=== PATIENT | male | born 1950 | race Caucasian/White ===

== ENCOUNTER 2024-09-05 09:56 | Inpatient (IN) | payer MEDICARE ==
[~2024-09-05] VITALS: Ht 172.7 cm; Wt 94.9 kg
[2024-09-05] VITALS (10 sets, daily range): BP systolic 116–156; BP diastolic 38–106; TEMP 97–97.9; O2SAT 93–98
[2024-09-05] MEDS ORDERED: DOXY100C3 PO (10:34)
[2024-09-05] MEDS ORDERED: LISI30TA4 PO (10:34)
[2024-09-05] MEDS ORDERED: PRED10TA2 PO (10:34)
[2024-09-05] MEDS ORDERED: OXYC30TA PO (10:34)
[2024-09-05] MEDS ORDERED: ATOR1TAB19 PO (10:34)
[2024-09-05 12:39] LABS: ALBUMIN 3.2 G/DL (3.2-5.2); ALKALINE PHOSPHATASE 58 U/L (40-129); ALT/SGPT 21 U/L (7.0-40); AST/SGOT 35 U/L (<34); BILIRUBIN,DIRECT < 0.1 MG/DL (<0.4); BILIRUBIN,TOTAL 0.3 MG/DL (0.3-1.2); BLOOD UREA NITROGEN 61 MG/DL (9-23); CALCIUM LEVEL 9.2 MG/DL (8.3-10.6); CARBON DIOXIDE LEVEL 22 MMOL/L (20-31); CHLORIDE LEVEL 105 MMOL/L (98-107); CREATININE FOR GFR 1.77 MG/DL (0.70-1.30); GLOMERULAR FILTRATION RATE 40.3 (>42); GLUCOSE, FASTING 121 MG/DL (74-106); POTASSIUM SERUM 5.7 MMOL/L (3.5-5.1); SODIUM LEVEL 139 MMOL/L (136-145); TOTAL PROTEIN 7.4 G/DL (5.7-8.2)
[2024-09-05 12:41] LABS: THYROID STIMULATING HORMONE 0.591 uIU/ML (0.55-4.78)
[2024-09-05 13:16] LABS: OSMOLALITY SERUM 313 MOSM/KG (280-301)
[2024-09-05 13:29] LABS: BASO % 0.4 % (0.0-1.0); EOS % 0.4 % (0.0-3.0); LYMPH # 0.9 10^3/uL (1.5-5.0); LYMPH % 33.1 % (24.0-44.0); MEAN CORPUSCULAR HEMOGLOBIN 38.1 pg (27.0-33.0); MEAN CORPUSCULAR HGB CONC 33.3 g/dl (32.0-36.5); MONO # 0.5 10^3/uL (0.0-0.8); MONO % 17.6 % (2.0-8.0); NEUTROPHILS # 1.2 10^3/uL (1.5-8.5); NEUTROPHILS % 42.2 % (36.0-66.0); RED BLOOD COUNT 1.47 10^6/uL (4.30-6.10); WHITE BLOOD COUNT 2.7 10^3/uL (4.0-10.0)
[2024-09-05 13:34] LABS: HEMATOCRIT 16.8 % (42.0-52.0); MEAN CORPUSCULAR VOLUME 114.3 fl (80.0-96.0); PLATELET COUNT, AUTOMATED 81 10^3/uL (150-450)
[2024-09-05 13:35] LABS: HEMOGLOBIN 5.6 g/dl (13.5-17.5)
[2024-09-05 13:40] LABS: INR 1.08; PROTHROMBIN TIME 14.3 SECONDS (12.5-14.5)
[2024-09-05] MEDS ORDERED: ALBU2.5V10 INH (13:42)
[2024-09-05] MEDS ORDERED: VENTAER INH (13:42)
[2024-09-05] MEDS ORDERED: ATEN50TA2 PO (13:42)
[2024-09-05] MEDS ORDERED: HOME MED LIST COMPLETE! XX SCH (13:45)
[2024-09-05 14:08] LABS: POTASSIUM SERUM 5.6 MMOL/L (3.5-5.1)
[2024-09-05 14:17] LABS: PERCENT SATURATION 92.6 % (19.7-50.0)
[2024-09-05 14:19] LABS: FERRITIN 1022.7 NG/ML (10.5-307.3)
[2024-09-05 14:20] LABS: FOLATE 19.8 NG/ML (>5.4)
[2024-09-05] MEDS ORDERED: ALBUTEROL SULFATE 2.5MG/0.5ML INH NEB SOLN INH PRN (16:00)
[2024-09-05] MEDS: PATIROMER SORBITEX CALCIUM 8.4 GM POWDER PACKET (VELTASSA) PO ONE (16:08)
[2024-09-05 17:16] LABS: URIC ACID 11.4 MG/DL (3.7-9.2)
[2024-09-05 17:19] LABS: PHOSPHORUS LEVEL 3.7 MG/DL (2.4-5.1)
[2024-09-05] MEDS: NS (Normal Saline) 0.9% 1,000 ML IV SCH (17:26)
[2024-09-05] MEDS: ATORVASTATIN 10 MG TAB PO SCH (20:16)
[2024-09-05] MEDS: oxyCODONE 5MG TAB PO SCH (20:17)
[2024-09-05 20:25] LABS: HEMATOCRIT 19.9 % (42.0-52.0); MEAN CORPUSCULAR HEMOGLOBIN 34.7 pg (27.0-33.0); MEAN CORPUSCULAR HGB CONC 33.7 g/dl (32.0-36.5); MEAN CORPUSCULAR VOLUME 103.1 fl (80.0-96.0); PLATELET COUNT, AUTOMATED 73 10^3/uL (150-450); RED BLOOD COUNT 1.93 10^6/uL (4.30-6.10); WHITE BLOOD COUNT 3.3 10^3/uL (4.0-10.0)
[2024-09-05 20:26] LABS: HEMOGLOBIN 6.7 g/dl (13.5-17.5)
[2024-09-05 20:55] LABS: ATYPICAL LYMPH 2 % (0-5); LYMPHOCYTES 44 % (16-44); MONOCYTES 15 % (0-5); NEUTROPHILS 39 % (28-66)
[2024-09-05 20:56] LABS: ANISOCYTOSIS 2+; PLATELET ESTIMATE DECREASED (NORMAL)
[2024-09-05 21:02] LABS: CALCIUM LEVEL 9.3 MG/DL (8.3-10.6); CREATININE FOR GFR 1.59 MG/DL (0.70-1.30); GLOMERULAR FILTRATION RATE 45.7 (>42); POTASSIUM SERUM 4.9 MMOL/L (3.5-5.1)
[2024-09-05 23:03] LABS: MEAN CORPUSCULAR HEMOGLOBIN 34.9 pg (27.0-33.0); MEAN CORPUSCULAR HGB CONC 34.6 g/dl (32.0-36.5); MEAN CORPUSCULAR VOLUME 100.9 fl (80.0-96.0); RED BLOOD COUNT 2.29 10^6/uL (4.30-6.10)
[2024-09-05 23:08] LABS: HEMATOCRIT 23.1 % (42.0-52.0)
[2024-09-05 23:09] LABS: PLATELET COUNT, AUTOMATED 68 10^3/uL (150-450)
[2024-09-05 23:25] LABS: MAGNESIUM LEVEL 2.1 MG/DL (1.8-2.4)
[2024-09-05 23:26] LABS: CK-MB VALUE MASS 2.1 NG/ML (<3.6)
[2024-09-05 23:27] LABS: MB/CK RELATIVE INDEX 1.3 (< OR =4)
[2024-09-06 04:00] VITALS: BP 132/58; TEMP 97.5; O2SAT 94
[2024-09-06 06:58] LABS: HEMATOCRIT 22.8 % (42.0-52.0); HEMOGLOBIN 7.8 g/dl (13.5-17.5); MEAN CORPUSCULAR HEMOGLOBIN 34.2 pg (27.0-33.0); MEAN CORPUSCULAR HGB CONC 34.2 g/dl (32.0-36.5); RED BLOOD COUNT 2.28 10^6/uL (4.30-6.10); WHITE BLOOD COUNT 2.5 10^3/uL (4.0-10.0)
[2024-09-06 07:02] LABS: PLATELET COUNT, AUTOMATED 68 10^3/uL (150-450)
[2024-09-06 07:32] LABS: CALCIUM LEVEL 8.7 MG/DL (8.3-10.6); CREATININE FOR GFR 1.37 MG/DL (0.70-1.30); GLOMERULAR FILTRATION RATE 54.2 (>42); POTASSIUM SERUM 4.8 MMOL/L (3.5-5.1)
[2024-09-06 08:00] VITALS: BP 130/68; TEMP 97.2; O2SAT 96
[2024-09-06 08:40] LABS: URIC ACID 9.8 MG/DL (3.7-9.2)
[2024-09-06 12:00] VITALS: BP 146/57; TEMP 97.5; O2SAT 94
[2024-09-06 20:26] VITALS: BP 161/56; TEMP 97.5; O2SAT 96
[2024-09-06 20:32] LABS: HEMATOCRIT 23.8 % (42.0-52.0); HEMOGLOBIN 8.1 g/dl (13.5-17.5); RED BLOOD COUNT 2.38 10^6/uL (4.30-6.10)
[2024-09-06 20:39] LABS: PLATELET COUNT, AUTOMATED 71 10^3/uL (150-450); WHITE BLOOD COUNT 2.3 10^3/uL (4.0-10.0)
[2024-09-06] MEDS: **hydrALAZINE HCL** 25 MG TAB PO PRN (20:50)
[2024-09-06 21:01] LABS: ATYPICAL LYMPH 13 % (0-5); EOSINOPHILS 1 % (0-3); LYMPHOCYTES 41 % (16-44); MONOCYTES 11 % (0-5); NEUTROPHILS 34 % (28-66)
[2024-09-06 21:05] LABS: PLATELET ESTIMATE DECREASED (NORMAL); SCHISTOCYTES 1+
[2024-09-06 21:08] LABS: ANISOCYTOSIS 1+
[2024-09-07 04:00] VITALS: BP 164/63; TEMP 97.5; O2SAT 96
[2024-09-07 06:35] LABS: EOS % 1.3 % (0.0-3.0); HEMATOCRIT 23.3 % (42.0-52.0); HEMOGLOBIN 8.1 g/dl (13.5-17.5); LYMPH # 1.1 10^3/uL (1.5-5.0); LYMPH % 50.7 % (24.0-44.0); MEAN CORPUSCULAR HEMOGLOBIN 34.3 pg (27.0-33.0); MEAN CORPUSCULAR HGB CONC 34.8 g/dl (32.0-36.5); MEAN CORPUSCULAR VOLUME 98.7 fl (80.0-96.0); MONO # 0.5 10^3/uL (0.0-0.8); MONO % 20.2 % (2.0-8.0); NEUTROPHILS % 22.9 % (36.0-66.0); RED BLOOD COUNT 2.36 10^6/uL (4.30-6.10); WHITE BLOOD COUNT 2.2 10^3/uL (4.0-10.0)
[2024-09-07 06:43] LABS: NEUTROPHILS # 0.5 10^3/uL (1.5-8.5); PLATELET COUNT, AUTOMATED 69 10^3/uL (150-450)
[2024-09-07 06:59] LABS: BLOOD UREA NITROGEN 30 MG/DL (9-23); CARBON DIOXIDE LEVEL 25 MMOL/L (20-31); CHLORIDE LEVEL 108 MMOL/L (98-107); CREATININE FOR GFR 1.03 MG/DL (0.70-1.30); GLOMERULAR FILTRATION RATE > 60.0 (>42); GLUCOSE, FASTING 100 MG/DL (74-106); POTASSIUM SERUM 4.4 MMOL/L (3.5-5.1); SODIUM LEVEL 143 MMOL/L (136-145)
[2024-09-07] MEDS ORDERED: LIDOCAINE 1% MDV 20ML VIAL As Ordered ONE (12:15)
[2024-09-07] MEDS: **hydrALAZINE** 50 MG TAB PO SCH (13:53)
[2024-09-07 14:00] VITALS: BP 175/78; TEMP 97.3; O2SAT 96
[2024-09-07 15:03] LABS: C REACTIVE PROTEIN QUANTITATIV 8.24 MG/DL (<1.0)
[2024-09-07 15:09] VITALS: BP 168/68
[2024-09-07] MEDS ORDERED: NORV5TAB PO (15:17)
[2024-09-07] MEDS ORDERED: HYDR25TA88 PO (15:17)
[2024-09-07 15:18] LABS: ERYTHROCYTE SEDIMENTATION RATE 54 mm/hr (0-20)
[2024-09-07 15:24] VITALS: BP 168/68
[2024-09-07] MEDS: amLODIPine 5 MG TAB PO ONE (15:24)
[2024-09-07 15:33] LABS: HEPATITIS B SURFACE ANTIGEN NEGATIVE (NEGATIVE)
[2024-09-07 15:45] LABS: HIV 1&2 SCREEN NEGATIVE (NEGATIVE)
[2024-09-07 15:54] LABS: HEPATITIS C VIRUS ABY INDEX 0.06 INDEX (<0.8)
[2024-09-09 17:49] LABS: BABESIA MICROTI PCR Not Detected (Not Detected)
[2024-09-10 15:02] LABS: LYME TOTAL ANTIBODY CIA <= 0.90 Index (<=0.90)
[2024-09-11 17:28] LABS: EHRLICHIA CAFFEENSIS IGM <1:20 (<1:20)
[2024-09-11 19:44] LABS: A PHAGOCYTOPHILUM AB IGG <1 (<1:64); ROCKY MTN SPOTTED FEVER IGM Not Detected (Not Detected)
[2024-09-13 16:23] LABS: ANTI PARVO VIRUS LEVEL IGG 3.2 (<0.9); ANTI PARVO VIRUS LEVEL IgM 0.8 (<0.9)
== END 2024-09-07 16:55 | disposition home or self-care (01) | DRG 809 ==
LOC: M ED 09:56 → M ED INP 15:45 → M MSPAV 17:22
PROVIDERS: ADMIT Internal Medicine; ATTEND Internal Medicine
PROC: 30233N1 Transfusion of Nonautologous Red Blood Cells into Peripheral Vein, Percutaneous Approach (ICD-10-PCS; 2024-09-05)
PROC: 07DR3ZX Extraction of Iliac Bone Marrow, Percutaneous Approach, Diagnostic (ICD-10-PCS; principal; 2024-09-07 12:00)
DX: D61.818 Other pancytopenia (principal); N17.9 Acute kidney failure, unspecified; E87.20 Acidosis, unspecified; I10 Essential (primary) hypertension; E78.5 Hyperlipidemia, unspecified; R71.8 Other abnormality of red blood cells; I73.9 Peripheral vascular disease, unspecified; G89.29 Other chronic pain; M54.9 Dorsalgia, unspecified; R53.1 Weakness; N28.1 Cyst of kidney, acquired; E87.5 Hyperkalemia; Z79.891 Long term (current) use of opiate analgesic; Z79.899 Other long term (current) drug therapy; Z88.5 Allergy status to narcotic agent; Z87.891 Personal history of nicotine dependence; Z98.62 Peripheral vascular angioplasty status

== ENCOUNTER → 2024-10-26 | Outpatient (CLI) | payer MEDICARE, OTHER ==
[~2024-10-26] VITALS: Ht 172.7 cm; Wt 99.0 kg
[~2024-10-26] MED LIST: ACYC200C8; ALBU2.5V10 INH; ATEN50TA2 PO; ATOR1TAB19 PO; CIPR500T39; DOXY100C3 PO; HYDR25TA88 PO; LIDOCAINE 1% MDV 20ML VIAL As Ordered ONE; LISI30TA4 PO; MIDAZOLAM INJ 2MG/2ML VIAL As Ordered ONE; NORV5TAB PO; NS (Normal Saline) 0.9% 1,000 ML IV SCH; OXYC30TA PO; PRED10TA2 PO; UNRESOLVED CLARIFICATION ENTRY XX SCH; VENC100T PO; VENTAER INH; ZYLO100T2 PO; ceFAZolin 2 GM/D5W 50 ML IV BAG As Ordered ONE; fentaNYL 100 MCG/2 ML INJECTION As Ordered ONE
[2024-10-26 11:55] VITALS: TEMP 98.2
[2024-10-26] MEDS: ceFAZolin SOD 2 GM in IV 1 EA IV ONE (14:41)
[2024-10-26 15:55] VITALS: BP 149/67; O2SAT 94
== END ==
LOC: M IRPRO 11:52
PROVIDERS: ATTEND Specialist
DX: C92.00 Acute myeloblastic leukemia, not having achieved remission (principal)
CPT/HCPCS: 36561; 99152; 99153; C1894; J0690; J1642; J2250; J3010

== ENCOUNTER 2024-11-06 04:03 | Inpatient (IN) | payer MEDICARE, OTHER ==
[~2024-11-06] VITALS: Ht 172.7 cm; Wt 90.7 kg
[2024-11-06] VITALS (8 sets, daily range): BP systolic 132–180; BP diastolic 44–80; TEMP 97.5–101.4; O2SAT 90–100
[~2024-11-06 04:03] MED LIST changes: -ACYC200C8; +ACYC200C8 PO; +ATIV1TAB7 PO; -CIPR500T39; +CIPR500T39 PO; +LIDO30CR18 TOP; -LIDOCAINE 1% MDV 20ML VIAL As Ordered ONE; +LORA1TAB23 PO; -MIDAZOLAM INJ 2MG/2ML VIAL As Ordered ONE; -NS (Normal Saline) 0.9% 1,000 ML IV SCH; -UNRESOLVED CLARIFICATION ENTRY XX SCH; -ceFAZolin 2 GM/D5W 50 ML IV BAG As Ordered ONE; -fentaNYL 100 MCG/2 ML INJECTION As Ordered ONE
[2024-11-06 05:00] LABS: EOS % 1.4 % (0.0-3.0); HEMATOCRIT 21.1 % (42.0-52.0); LYMPH # 0.8 10^3/uL (1.5-5.0); LYMPH % 53.9 % (24.0-44.0); MEAN CORPUSCULAR HEMOGLOBIN 27.3 pg (27.0-33.0); MEAN CORPUSCULAR HGB CONC 33.2 g/dl (32.0-36.5); MEAN CORPUSCULAR VOLUME 82.4 fl (80.0-96.0); MONO # 0.5 10^3/uL (0.0-0.8); NEUTROPHILS % 6.4 % (36.0-66.0); RED BLOOD COUNT 2.56 10^6/uL (4.30-6.10); WHITE BLOOD COUNT 1.4 10^3/uL (4.0-10.0)
[2024-11-06 05:13] LABS: AMYLASE 88 U/L (30-118)
[2024-11-06 05:14] LABS: C REACTIVE PROTEIN QUANTITATIV 12.77 MG/DL (<1.0)
[2024-11-06 05:16] LABS: NEUTROPHILS # 0.1 10^3/uL (1.5-8.5); PLATELET COUNT, AUTOMATED 12 10^3/uL (150-450)
[2024-11-06 05:25] LABS: PROCALCITONIN 0.28 ng/ml
[2024-11-06 05:32] LABS: ALBUMIN 2.8 G/DL (3.2-5.2); ALKALINE PHOSPHATASE 49 U/L (40-129); ALT/SGPT 18 U/L (7.0-40); AST/SGOT 20 U/L (<34); BILIRUBIN,DIRECT < 0.1 MG/DL (<0.4); BILIRUBIN,TOTAL 0.4 MG/DL (0.3-1.2); BLOOD UREA NITROGEN 33 MG/DL (9-23); CALCIUM LEVEL 8.5 MG/DL (8.3-10.6); CARBON DIOXIDE LEVEL 26 MMOL/L (20-31); CHLORIDE LEVEL 101 MMOL/L (98-107); CREATININE FOR GFR 1.27 MG/DL (0.70-1.30); GLUCOSE, FASTING 112 MG/DL (74-106); POTASSIUM SERUM 4.3 MMOL/L (3.5-5.1); SODIUM LEVEL 136 MMOL/L (136-145); TOTAL PROTEIN 6.7 G/DL (5.7-8.2)
[2024-11-06] MEDS: CEFEPIME HCL 2 GM in DEXTROSE 5% (D5W) ADV/MINI-BAG 50 ML IV ONE (10:15)
[2024-11-06] MEDS: ACETAMINOPHEN 325 MG TAB PO PRN (10:15)
[2024-11-06 10:59] LABS: APPEARANCE, URINE CLEAR (CLEAR); BACTERIA, URINE AUTO NEGATIVE (NEGATIVE); BILIRUBIN, URINE AUTO NEGATIVE (NEGATIVE); BLOOD, URINE BLOOD NEGATIVE (NEGATIVE); COLOR, URINE YELLOW (YELLOW); GLUCOSE, URINE (UA) AUTO NEGATIVE (NEGATIVE); KETONE, URINE AUTO NEGATIVE (NEGATIVE); LEUKOCYTE ESTERASE, URINE AUTO NEGATIVE (NEGATIVE); NITRITE, URINE AUTO NEGATIVE (NEGATIVE); PROTEIN, URINE AUTO 2+ mg/dL (NEGATIVE); RBC, URINE AUTO 0 /HPF (0-3); SPECIFIC GRAVITY URINE AUTO 1.016 (1.002-1.035); SQUAMOUS EPITHELIAL CELL UR AU 0 /HPF (0-6); UROBILINOGEN, URINE AUTO 0.2 mg/dL (0.0-2.0); WBC, URINE AUTO 0 /HPF (0-3)
[2024-11-06 11:46] LABS: URIC ACID 5.9 MG/DL (3.7-9.2)
[2024-11-06] MEDS ORDERED: ALBUTEROL 90 MCG/ACT 8GM HFA INHALER INH PRN (14:05)
[2024-11-06] MEDS ORDERED: AMLO1TAB24 PO (14:23)
[2024-11-06] MEDS ORDERED: HYDR25TA87 PO (14:25)
[2024-11-06] MEDS ORDERED: HOME MED LIST COMPLETE! XX SCH (14:30)
[2024-11-06 14:58] LABS: LDH LACTATE DEHYDROGENASE 429 U/L (120-246)
[2024-11-06] MEDS: FUROSEMIDE 40MG/4ML VIAL IV ONE ×2 (18:00→19:03)
[2024-11-06] MEDS: amLODIPine 5 MG TAB PO SCH (19:03)
[2024-11-06] MEDS: allopurinoL 300 MG TAB PO SCH (19:03)
[2024-11-06] MEDS: ATORVASTATIN 10 MG TAB PO SCH (21:22)
[2024-11-06] MEDS: LORazepam 1 MG TAB PO SCH (21:23)
[2024-11-06] MEDS: oxyCODONE 5MG TAB PO SCH (21:23)
[2024-11-06] MEDS: ACYCLOVIR 200 MG CAPSULE PO SCH (22:29)
[2024-11-07] VITALS (9 sets, daily range): BP systolic 124–151; BP diastolic 50–76; TEMP 97.3–101.4; O2SAT 92–95
[2024-11-07] MEDS: FUROSEMIDE 40MG/4ML VIAL IV ONE (00:11)
[2024-11-07] MEDS: REMDESIVIR 200 MG in NS 250 ML IV ONE (00:45)
[2024-11-07] MEDS: CEFEPIME HCL 2 GM in DEXTROSE 5% (D5W) ADV/MINI-BAG 50 ML IV SCH ×2 (03:11→18:33)
[2024-11-07 06:12] LABS: HEMATOCRIT 22.9 % (42.0-52.0); HEMOGLOBIN 7.7 g/dl (13.5-17.5); LYMPH # 0.7 10^3/uL (1.5-5.0); MEAN CORPUSCULAR HEMOGLOBIN 27.4 pg (27.0-33.0); MEAN CORPUSCULAR HGB CONC 33.6 g/dl (32.0-36.5); MEAN CORPUSCULAR VOLUME 81.5 fl (80.0-96.0); MONO # 0.3 10^3/uL (0.0-0.8); MONO % 28.8 % (2.0-8.0); NEUTROPHILS % 3.6 % (36.0-66.0); RED BLOOD COUNT 2.81 10^6/uL (4.30-6.10)
[2024-11-07 06:30] LABS: C REACTIVE PROTEIN QUANTITATIV 23.47 MG/DL (<1.0)
[2024-11-07 06:31] LABS: ALBUMIN 2.6 G/DL (3.2-5.2); ALKALINE PHOSPHATASE 50 U/L (40-129); ALT/SGPT 21 U/L (7.0-40); AST/SGOT 22 U/L (<34); BILIRUBIN,DIRECT 0.1 MG/DL (<0.4); BILIRUBIN,TOTAL 0.4 MG/DL (0.3-1.2); BLOOD UREA NITROGEN 27 MG/DL (9-23); CALCIUM LEVEL 8.2 MG/DL (8.3-10.6); CARBON DIOXIDE LEVEL 27 MMOL/L (20-31); CHLORIDE LEVEL 101 MMOL/L (98-107); CREATININE FOR GFR 1.03 MG/DL (0.70-1.30); GLOMERULAR FILTRATION RATE > 60.0 (>42); GLUCOSE, FASTING 110 MG/DL (74-106); PLATELET COUNT, AUTOMATED 11 10^3/uL (150-450); POTASSIUM SERUM 3.6 MMOL/L (3.5-5.1); SODIUM LEVEL 138 MMOL/L (136-145); TOTAL PROTEIN 6.4 G/DL (5.7-8.2); WHITE BLOOD COUNT 1.1 10^3/uL (4.0-10.0)
[2024-11-07] MEDS: **hydrALAZINE HCL** 25 MG TAB PO SCH (10:53)
[2024-11-07] MEDS: FILGRASTIM 480 MCG/0.8 ML SYRINGE **SC ADMINISTRATION ONLY SC SCH (11:05)
[2024-11-07 15:20] LABS: PROCALCITONIN 0.27 ng/ml
[2024-11-07] MEDS: REMDESIVIR 100 MG in NS 100 ML IV SCH (16:56)
[2024-11-07] MEDS ORDERED: MOM 30ML SUSPENSION UDC PO PRN (18:35)
[2024-11-07] MEDS: MOM 30ML SUSPENSION UDC PO ONE (18:59)
[2024-11-07 19:45] LABS: HEMATOCRIT 22.1 % (42.0-52.0); HEMOGLOBIN 7.6 g/dl (13.5-17.5); LYMPH # 0.8 10^3/uL (1.5-5.0); LYMPH % 52.7 % (24.0-44.0); MEAN CORPUSCULAR HEMOGLOBIN 27.9 pg (27.0-33.0); MEAN CORPUSCULAR HGB CONC 34.4 g/dl (32.0-36.5); MEAN CORPUSCULAR VOLUME 81.3 fl (80.0-96.0); MONO # 0.5 10^3/uL (0.0-0.8); MONO % 34.9 % (2.0-8.0); NEUTROPHILS % 11.7 % (36.0-66.0); RED BLOOD COUNT 2.72 10^6/uL (4.30-6.10); WHITE BLOOD COUNT 1.5 10^3/uL (4.0-10.0)
[2024-11-07 20:01] LABS: NEUTROPHILS # 0.2 10^3/uL (1.5-8.5)
[2024-11-07 20:02] LABS: PLATELET COUNT, AUTOMATED 8 10^3/uL (150-450)
[2024-11-07] MEDS: DOCUSATE SODIUM 100MG CAPSULE PO SCH (21:27)
[2024-11-07] MEDS: SENNA 8.6 MG TAB (SENOKOT) PO SCH (21:28)
[2024-11-08] VITALS (16 sets, daily range): BP systolic 101–183; BP diastolic 59–79; TEMP 97.3–101.1; O2SAT 92–100
[2024-11-08 05:48] LABS: MEAN CORPUSCULAR HEMOGLOBIN 27.5 pg (27.0-33.0); MEAN CORPUSCULAR HGB CONC 33.8 g/dl (32.0-36.5); MEAN CORPUSCULAR VOLUME 81.4 fl (80.0-96.0); RED BLOOD COUNT 2.47 10^6/uL (4.30-6.10); WHITE BLOOD COUNT 1.1 10^3/uL (4.0-10.0)
[2024-11-08 06:05] LABS: ALBUMIN 2.5 G/DL (3.2-5.2); ALKALINE PHOSPHATASE 48 U/L (40-129); ALT/SGPT 27 U/L (7.0-40); AST/SGOT 24 U/L (<34); BILIRUBIN,TOTAL 0.3 MG/DL (0.3-1.2); BLOOD UREA NITROGEN 30 MG/DL (9-23); CALCIUM LEVEL 8.1 MG/DL (8.3-10.6); CARBON DIOXIDE LEVEL 28 MMOL/L (20-31); CHLORIDE LEVEL 101 MMOL/L (98-107); CREATININE FOR GFR 1.14 MG/DL (0.70-1.30); GLOMERULAR FILTRATION RATE > 60.0 (>42); GLUCOSE, FASTING 106 MG/DL (74-106); POTASSIUM SERUM 3.7 MMOL/L (3.5-5.1); SODIUM LEVEL 138 MMOL/L (136-145); TOTAL PROTEIN 6.1 G/DL (5.7-8.2)
[2024-11-08 06:07] LABS: HEMATOCRIT 20.1 % (42.0-52.0); HEMOGLOBIN 6.8 g/dl (13.5-17.5); PLATELET COUNT, AUTOMATED 34 10^3/uL (150-450)
[2024-11-08 07:03] LABS: ATYPICAL LYMPH 4 % (0-5); LYMPHOCYTES 67 % (16-44); MONOCYTES 21 % (0-5); NEUTROPHILS 8 % (28-66); PLATELET ESTIMATE MARKED DECREASE (NORMAL)
[2024-11-08 07:04] LABS: ANISOCYTOSIS 1+; POIKILOCYTOSIS 1+; POLYCHROMASIA 1+; ROULEAUX 1+
[2024-11-08 08:13] LABS: SOURCE PERIPHERAL SMEAR
[2024-11-08 08:37] LABS: D-DIMER QUANT 3.36 ug/mL (<0.5)
[2024-11-08] MEDS: LACTOBACILLUS ACIDOPHILUS CAP (BACID) PO SCH (17:26)
[2024-11-08] MEDS: KETOROLAC 30 MG/ML 1ML VIAL IV ONE (17:32)
[2024-11-08 18:00] LABS: MEAN CORPUSCULAR HEMOGLOBIN 27.9 pg (27.0-33.0); MEAN CORPUSCULAR HGB CONC 34.1 g/dl (32.0-36.5); MEAN CORPUSCULAR VOLUME 81.7 fl (80.0-96.0); RED BLOOD COUNT 2.51 10^6/uL (4.30-6.10)
[2024-11-08 18:01] LABS: HEMATOCRIT 20.5 % (42.0-52.0); PLATELET COUNT, AUTOMATED 22 10^3/uL (150-450)
[2024-11-08 18:41] LABS: ATYPICAL LYMPH 5 % (0-5); LYMPHOCYTES 59 % (16-44); METAMYELOCYTES 1 % (0-0); MONOCYTES 32 % (0-5); NEUTROPHILS 3 % (28-66); PLATELET ESTIMATE MARKED DECREASE (NORMAL)
[2024-11-08 18:43] LABS: ANISOCYTOSIS 1+; HYPOCHROMASIA 2+; MICROCYTOSIS 1+
[2024-11-08] MEDS ORDERED: CIPROFLOXACIN 500MG TABLET PO SCH (21:00)
[2024-11-09] VITALS (10 sets, daily range): BP systolic 132–166; BP diastolic 51–88; TEMP 97.7–98.5; O2SAT 92–98
[2024-11-09 01:25] LABS: POTASSIUM SERUM 3.8 MMOL/L (3.5-5.1)
[2024-11-09 06:24] LABS: HEMATOCRIT 21.4 % (42.0-52.0); HEMOGLOBIN 7.3 g/dl (13.5-17.5); LYMPH # 0.7 10^3/uL (1.5-5.0); LYMPH % 64.3 % (24.0-44.0); MEAN CORPUSCULAR HEMOGLOBIN 27.9 pg (27.0-33.0); MEAN CORPUSCULAR HGB CONC 34.1 g/dl (32.0-36.5); MEAN CORPUSCULAR VOLUME 81.7 fl (80.0-96.0); MONO # 0.3 10^3/uL (0.0-0.8); MONO % 30.4 % (2.0-8.0); NEUTROPHILS % 2.6 % (36.0-66.0); RED BLOOD COUNT 2.62 10^6/uL (4.30-6.10); WHITE BLOOD COUNT 1.1 10^3/uL (4.0-10.0)
[2024-11-09 06:28] LABS: PLATELET COUNT, AUTOMATED 12 10^3/uL (150-450)
[2024-11-09 06:41] LABS: ALBUMIN 2.4 G/DL (3.2-5.2); ALKALINE PHOSPHATASE 51 U/L (40-129); ALT/SGPT 27 U/L (7.0-40); AST/SGOT 24 U/L (<34); BILIRUBIN,TOTAL 0.3 MG/DL (0.3-1.2); BLOOD UREA NITROGEN 25 MG/DL (9-23); CALCIUM LEVEL 7.8 MG/DL (8.3-10.6); CARBON DIOXIDE LEVEL 26 MMOL/L (20-31); CHLORIDE LEVEL 101 MMOL/L (98-107); CREATININE FOR GFR 0.95 MG/DL (0.70-1.30); GLOMERULAR FILTRATION RATE > 60.0 (>42); GLUCOSE, FASTING 99 MG/DL (74-106); POTASSIUM SERUM 3.7 MMOL/L (3.5-5.1); SODIUM LEVEL 137 MMOL/L (136-145); TOTAL PROTEIN 5.8 G/DL (5.7-8.2)
[2024-11-09] MEDS ORDERED: oxyCODONE 5MG TAB PO PRN (14:00)
[2024-11-09] MEDS: oxyCODONE 5MG TAB PO PRN (14:51)
[2024-11-09 15:34] LABS: HEMATOCRIT 26.5 % (42.0-52.0); HEMOGLOBIN 9.1 g/dl (13.5-17.5); LYMPH # 0.7 10^3/uL (1.5-5.0); LYMPH % 68.6 % (24.0-44.0); MEAN CORPUSCULAR HEMOGLOBIN 28.1 pg (27.0-33.0); MEAN CORPUSCULAR HGB CONC 34.3 g/dl (32.0-36.5); MEAN CORPUSCULAR VOLUME 81.8 fl (80.0-96.0); MONO # 0.3 10^3/uL (0.0-0.8); MONO % 25.7 % (2.0-8.0); NEUTROPHILS % 0.9 % (36.0-66.0); RED BLOOD COUNT 3.24 10^6/uL (4.30-6.10); WHITE BLOOD COUNT 1.1 10^3/uL (4.0-10.0)
[2024-11-09 15:36] LABS: PLATELET COUNT, AUTOMATED 11 10^3/uL (150-450)
[2024-11-09] MEDS ORDERED: OXYC15TA66 PO ×2 (16:40→16:43)
[2024-11-09] MEDS ORDERED: ACET32TAB PO (16:40)
[2024-11-09] MEDS ORDERED: RISATAB3 PO (16:40)
[2024-11-09] MEDS ORDERED: SENO8.6T5 PO (16:40)
[2024-11-09] MEDS ORDERED: COLA100C5 PO (16:40)
[2024-11-09] MEDS ORDERED: OXYC-517 PO ×2 (16:40→16:41)
[2024-11-09] MEDS ORDERED: RAMELTEON 8 MG TAB (ROZEREM) PO SCH (21:00)
[2024-11-09] MEDS ORDERED: oxyCODONE 15MG CR TAB PO SCH (21:00)
== END 2024-11-09 18:06 | disposition home or self-care (01) | DRG 871 ==
LOC: EDBD 04:03 → M ED 04:03 → M ED INP 08:12 → M MSPAV 20:16
PROVIDERS: ADMIT Internal Medicine Nephrology; ATTEND Internal Medicine
PROC: XW033E5 Introduction of Remdesivir Anti-infective into Peripheral Vein, Percutaneous Approach, New Technology Group 5 (ICD-10-PCS; principal; 2024-11-06)
PROC: 30233R1 Transfusion of Nonautologous Platelets into Peripheral Vein, Percutaneous Approach (ICD-10-PCS; 2024-11-06)
PROC: 30233N1 Transfusion of Nonautologous Red Blood Cells into Peripheral Vein, Percutaneous Approach (ICD-10-PCS; 2024-11-06)
DX: A41.9 Sepsis, unspecified organism (principal); U07.1 COVID-19; D61.810 Antineoplastic chemotherapy induced pancytopenia; C92.00 Acute myeloblastic leukemia, not having achieved remission; I10 Essential (primary) hypertension; E78.5 Hyperlipidemia, unspecified; I73.9 Peripheral vascular disease, unspecified; G89.29 Other chronic pain; F41.9 Anxiety disorder, unspecified; M54.50 Low back pain, unspecified; D70.3 Neutropenia due to infection; T45.1X5A Adverse effect of antineoplastic and immunosuppressive drugs, initial encounter; Z79.69 Long term (current) use of other immunomodulators and immunosuppressants; Z79.899 Other long term (current) drug therapy; Z79.891 Long term (current) use of opiate analgesic; Z87.891 Personal history of nicotine dependence

== ENCOUNTER → 2024-11-14 | Outpatient (CLI) | payer MEDICARE, OTHER ==
[~2024-11-14] VITALS: Ht 167.6 cm; Wt 93.8 kg
[~2024-11-14] MED LIST changes: +ACET32TAB PO; +AMLO1TAB24 PO; +COLA100C5 PO; +HYDR25TA87 PO; +MAGICMW SSP; +OXYC-517 PO; +OXYC15TA66 PO; +OXYC30TA72 PO; +POSACONAZOLE PO; +RISATAB3 PO; +SENO8.6T5 PO
[2024-11-14 15:19] VITALS: BP 183/62; O2SAT 96
== END ==
LOC: M PAL 15:00
PROVIDERS: ATTEND Family Medicine
DX: Z51.5 Encounter for palliative care (principal); C92.00 Acute myeloblastic leukemia, not having achieved remission; Z79.891 Long term (current) use of opiate analgesic; Z79.69 Long term (current) use of other immunomodulators and immunosuppressants

== ENCOUNTER 2024-11-21 19:29 | Inpatient (IN) | payer MEDICARE, OTHER ==
[~2024-11-21] VITALS: Ht 172.7 cm; Wt 94.9 kg
[2024-11-21 20:25] LABS: VENOUS BASE EXCESS 2.9 (-2.0-2.0); VENOUS O2 SATURATION 95.5 % (60.0-80.0); VENOUS PARTIAL PRESSURE CO2 38.7 mmHg (38.0-50.0); VENOUS PARTIAL PRESSURE O2 79.2 mmHg (30.0-50.0); VENOUS PH 7.461 UNITS (7.330-7.430); VENOUS STANDARD HCO3 27.1 MMOL/L; VENOUS TOTAL CO2 28.2 MMOL/L (24.0-28.0)
[2024-11-21 20:44] LABS: THYROID STIMULATING HORMONE 0.892 uIU/ML (0.55-4.78)
[2024-11-21 20:50] LABS: LYMPH # 0.5 10^3/uL (1.5-5.0); MEAN CORPUSCULAR HEMOGLOBIN 28.8 pg (27.0-33.0); MEAN CORPUSCULAR HGB CONC 33.9 g/dl (32.0-36.5); MEAN CORPUSCULAR VOLUME 85.1 fl (80.0-96.0); MONO # 0.4 10^3/uL (0.0-0.8); MONO % 41.8 % (2.0-8.0); NEUTROPHILS % 7.2 % (36.0-66.0); RED BLOOD COUNT 2.22 10^6/uL (4.30-6.10)
[2024-11-21 20:58] LABS: HEMATOCRIT 18.9 % (42.0-52.0); HEMOGLOBIN 6.4 g/dl (13.5-17.5); NEUTROPHILS # 0.1 10^3/uL (1.5-8.5)
[2024-11-21 21:26] LABS: BILIRUBIN,DIRECT 0.2 MG/DL (<0.4); BILIRUBIN,TOTAL 0.7 MG/DL (0.3-1.2); CALCIUM LEVEL 8.1 MG/DL (8.3-10.6); CREATININE FOR GFR 1.42 MG/DL (0.70-1.30); GLOMERULAR FILTRATION RATE 51.9 (>42); POTASSIUM SERUM 5.4 MMOL/L (3.5-5.1); TOTAL PROTEIN 6.9 G/DL (5.7-8.2)
[2024-11-21] MEDS: NS (Normal Saline) 0.9% 1,000 ML IV SCH (21:40)
[2024-11-21 21:41] LABS: MB/CK RELATIVE INDEX 0.61 (< OR =4)
[2024-11-21] MEDS: ACETAMINOPHEN 325 MG TAB PO ONE (21:45)
[2024-11-21] MEDS: MORPHINE 2 MG/ML 1ML VIAL IV ONE (21:55)
[2024-11-21 22:15] LABS: INR 1.21; PARTIAL THROMBOPLASTIN TIME 38.2 SECONDS (24.8-34.2); PROTHROMBIN TIME 15.6 SECONDS (12.5-14.5)
[2024-11-21 22:17] LABS: KETONE, URINE AUTO RFX NEGATIVE (NEGATIVE); LEUKOCYTE ESTERASE UR AUTO RFX NEGATIVE (NEGATIVE); MUCUS, URINE RFX SMALL (NEGATIVE); NITRITE, URINE AUTO RFX NEGATIVE (NEGATIVE); RBC, URINE AUTO RFX 6 /HPF (0-3); SQUAM EPITHELIAL CELL UR AURFX 0 /HPF (0-6); WBC, URINE AUTO RFX 2 /HPF (0-3)
[2024-11-21] MEDS ORDERED: ISOVUE-370 76% 100ML VIAL As Ordered ONE (22:24)
[2024-11-21] MEDS: HumuLIN R (REGULAR) INSULIN (NovoLIN R) **100U/ML** PER UNIT IV ONE (22:29)
[2024-11-21] MEDS: DEXTROSE 50% 50ML SYRINGE IV STA (22:30)
[2024-11-21] MEDS: PIPERACILLIN/TAZOBACTAM SOD 4.5 GM in DEXTROSE 5% (D5W) ADV/MINI-BAG 50 ML IV ONE (22:33)
[2024-11-21 22:42] LABS: PLATELET COUNT, AUTOMATED 12 10^3/uL (150-450)
[2024-11-21] MEDS: CALCIUM GLUCONATE 1,000 MG in DEXTROSE 5% (D5W) MINI-BAG PLU 100 ML IV ONE (23:03)
[2024-11-21] MEDS ORDERED: RISATAB3 PO (23:13)
[2024-11-21] MEDS ORDERED: [UNRECOGNIZED DRUG - CODE] PO (23:13)
[2024-11-21] MEDS ORDERED: OXYC30TA72 PO (23:13)
[2024-11-21] MEDS ORDERED: LORA1TAB23 PO (23:13)
[2024-11-21] MEDS ORDERED: ALLO10TA PO (23:13)
[2024-11-21] MEDS ORDERED: LIDO30CR18 TOP (23:13)
[2024-11-21] MEDS ORDERED: MAGICMW SSP (23:13)
[2024-11-21] MEDS ORDERED: HOME MED LIST COMPLETE! XX SCH (23:15)
[2024-11-22] VITALS (14 sets, daily range): BP systolic 100–147; BP diastolic 50–69; TEMP 95.8–98.5; O2SAT 94–99
[2024-11-22] MEDS ORDERED: MAALOX 30 ML SUSP *UDC PO PRN
[2024-11-22] MEDS: NS (Normal Saline) 0.9% 1,000 ML IV SCH (00:29)
[2024-11-22 01:13] LABS: URIC ACID 4.7 MG/DL (3.7-9.2)
[2024-11-22] MEDS: PATIROMER SORBITEX CALCIUM 8.4 GM POWDER PACKET (VELTASSA) PO ONE (01:31)
[2024-11-22 01:36] LABS: SOURCE PERIPHERAL SMEAR
[2024-11-22] MEDS: LORazepam 1 MG TAB PO SCH (02:09)
[2024-11-22] MEDS: ATORVASTATIN 10 MG TAB PO SCH (02:09)
[2024-11-22] MEDS: PERCOCET 5MG/325MG TAB PO PRN (02:29)
[2024-11-22 03:10] LABS: PHOSPHORUS LEVEL 3.4 MG/DL (2.4-5.1)
[2024-11-22] MEDS ORDERED: cefTRIAXone SOD 2 GM in DEXTROSE 5% (D5W) ADV/MINI-BAG 50 ML IV SCH (06:00)
[2024-11-22] MEDS: PIPERACILLIN/TAZOBACTAM SOD 4.5 GM in DEXTROSE 5% (D5W) ADV/MINI-BAG 50 ML IV SCH ×2 (06:16→14:26)
[2024-11-22] MEDS ORDERED: VANCOMYCIN HCL 2,000 MG, VIAL MATE ADAPTER 1 EACH in NS 500 ML IV ONE (08:00)
[2024-11-22] MEDS ORDERED: VANCOMYCIN HCL 1,000 MG, VIAL MATE ADAPTER 1 EACH in NS 250 ML IV SCH (08:00)
[2024-11-22] MEDS ORDERED: ENOXAPARIN 40MG/0.4ML SYRINGE (J1650 PER 10MG) SC SCH (09:00)
[2024-11-22] MEDS: amLODIPine 5 MG TAB PO SCH (09:37)
[2024-11-22] MEDS: **hydrALAZINE HCL** 25 MG TAB PO SCH (09:37)
[2024-11-22] MEDS: VANCOMYCIN HCL 1,000 MG, VIAL MATE ADAPTER 1 EACH in NS 250 ML IV ONE (09:38)
[2024-11-22] MEDS: PANTOPRAZOLE 40MG VIAL IV SCH (09:38)
[2024-11-22] MEDS: DOCUSATE SODIUM 100MG CAPSULE PO SCH (09:38)
[2024-11-22] MEDS: allopurinoL 300 MG TAB PO SCH (09:38)
[2024-11-22 10:38] LABS: HEMATOCRIT 22.1 % (42.0-52.0); HEMOGLOBIN 7.4 g/dl (13.5-17.5); LYMPH # 0.6 10^3/uL (1.5-5.0); MEAN CORPUSCULAR HEMOGLOBIN 28.4 pg (27.0-33.0); MEAN CORPUSCULAR HGB CONC 33.5 g/dl (32.0-36.5); MEAN CORPUSCULAR VOLUME 84.7 fl (80.0-96.0); MONO # 0.3 10^3/uL (0.0-0.8); RED BLOOD COUNT 2.61 10^6/uL (4.30-6.10)
[2024-11-22 10:40] LABS: NEUTROPHILS # 0.1 10^3/uL (1.5-8.5); PLATELET COUNT, AUTOMATED 19 10^3/uL (150-450)
[2024-11-22] MEDS: oxyCODONE 15MG CR TAB PO SCH (10:57)
[2024-11-22 10:58] LABS: D-DIMER QUANT 6.06 ug/mL (<0.5); INR 1.19; PARTIAL THROMBOPLASTIN TIME 36.6 SECONDS (24.8-34.2); PROTHROMBIN TIME 15.4 SECONDS (12.5-14.5)
[2024-11-22] MEDS ORDERED: VANCOMYCIN HCL 0 MG in IV FLUID PLACE HOLDER 1 EA IV SCH (11:05)
[2024-11-22 11:08] LABS: BLOOD UREA NITROGEN 23 MG/DL (9-23); CALCIUM LEVEL 7.7 MG/DL (8.3-10.6); CARBON DIOXIDE LEVEL 27 MMOL/L (20-31); CHLORIDE LEVEL 104 MMOL/L (98-107); CREATININE FOR GFR 1.04 MG/DL (0.70-1.30); GLOMERULAR FILTRATION RATE > 60.0 (>42); GLUCOSE, FASTING 106 MG/DL (74-106); SODIUM LEVEL 139 MMOL/L (136-145)
[2024-11-22] MEDS: ACYCLOVIR 200 MG CAPSULE PO SCH (12:45)
[2024-11-22] MEDS: VANCOMYCIN HCL 1,000 MG, VIAL MATE ADAPTER 1 EACH in NS 250 ML IV SCH (15:45)
[2024-11-22] MEDS ORDERED: MAGIC MOUTHWASH 5ML ORAL SYRINGE SS PRN (16:00)
[2024-11-22] MEDS ORDERED: PROHANCE 279.3MG/ML 5ML VIAL As Ordered ONE (19:17)
[2024-11-22] MEDS ORDERED: PROHANCE 279.3MG/ML 15ML VIAL As Ordered ONE (19:17)
[2024-11-22 22:34] LABS: HEMATOCRIT 22.8 % (42.0-52.0); HEMOGLOBIN 7.6 g/dl (13.5-17.5); MEAN CORPUSCULAR HGB CONC 33.3 g/dl (32.0-36.5); MEAN CORPUSCULAR VOLUME 84.1 fl (80.0-96.0); PLATELET COUNT, AUTOMATED 21 10^3/uL (150-450); RED BLOOD COUNT 2.71 10^6/uL (4.30-6.10); WHITE BLOOD COUNT 0.6 10^3/uL (4.0-10.0)
[2024-11-23] VITALS (16 sets, daily range): BP systolic 123–168; BP diastolic 58–99; TEMP 97.3–98.4; O2SAT 2–96
[2024-11-23] MEDS: MORPHINE 2 MG/ML 1ML VIAL IV PRN (01:31)
[2024-11-23 07:15] LABS: EOS % 1.4 % (0.0-3.0); HEMOGLOBIN 7.4 g/dl (13.5-17.5); LYMPH # 0.6 10^3/uL (1.5-5.0); LYMPH % 79.7 % (24.0-44.0); MEAN CORPUSCULAR HEMOGLOBIN 28.6 pg (27.0-33.0); MEAN CORPUSCULAR HGB CONC 33.6 g/dl (32.0-36.5); MEAN CORPUSCULAR VOLUME 84.9 fl (80.0-96.0); MONO # 0.1 10^3/uL (0.0-0.8); MONO % 15.9 % (2.0-8.0); NEUTROPHILS % 1.6 % (36.0-66.0); RED BLOOD COUNT 2.59 10^6/uL (4.30-6.10)
[2024-11-23 07:25] LABS: INR 1.04; PROTHROMBIN TIME 13.9 SECONDS (12.5-14.5)
[2024-11-23 07:37] LABS: ALBUMIN 1.9 G/DL (3.2-5.2); BLOOD UREA NITROGEN 14 MG/DL (9-23); CALCIUM LEVEL 7.7 MG/DL (8.3-10.6); CARBON DIOXIDE LEVEL 26 MMOL/L (20-31); CHLORIDE LEVEL 103 MMOL/L (98-107); CREATININE FOR GFR 0.89 MG/DL (0.70-1.30); GLOMERULAR FILTRATION RATE > 60.0 (>42); GLUCOSE, FASTING 101 MG/DL (74-106); POTASSIUM SERUM 3.7 MMOL/L (3.5-5.1); SODIUM LEVEL 138 MMOL/L (136-145)
[2024-11-23 07:54] LABS: PLATELET COUNT, AUTOMATED 24 10^3/uL (150-450); WHITE BLOOD COUNT 0.7 10^3/uL (4.0-10.0)
[2024-11-23] MEDS: ACETAMINOPHEN 325 MG TAB PO PRN (09:06)
[2024-11-23 11:26] LABS: PLATELET COUNT, AUTOMATED 22 10^3/uL (150-450)
[2024-11-23] MEDS: VANCOMYCIN HCL 1,000 MG, VIAL MATE ADAPTER 1 EACH in NS 250 ML IV SCH (12:18)
[2024-11-23] MEDS: LIDOCAINE 5% (LIDODERM) PATCH TD SCH (12:18)
[2024-11-23] MEDS: FILGRASTIM 480 MCG/0.8 ML SYRINGE **SC ADMINISTRATION ONLY SC SCH (12:18)
[2024-11-23 14:18] LABS: HEMOGLOBIN 7.7 g/dl (13.5-17.5); MEAN CORPUSCULAR HEMOGLOBIN 28.7 pg (27.0-33.0); MEAN CORPUSCULAR HGB CONC 33.5 g/dl (32.0-36.5); MEAN CORPUSCULAR VOLUME 85.8 fl (80.0-96.0); RED BLOOD COUNT 2.68 10^6/uL (4.30-6.10)
[2024-11-23 14:36] LABS: PLATELET COUNT, AUTOMATED 42 10^3/uL (150-450); WHITE BLOOD COUNT 0.7 10^3/uL (4.0-10.0)
[2024-11-23 16:39] LABS: CPK CREATINE PHOSPHOKINASE 160 U/L (46-171)
[2024-11-23] MEDS: POSACONAZOLE 300 MG PO SCH (17:10)
[2024-11-23 19:12] LABS: HEMATOCRIT 21.6 % (42.0-52.0); HEMOGLOBIN 7.1 g/dl (13.5-17.5); MEAN CORPUSCULAR HGB CONC 32.9 g/dl (32.0-36.5); RED BLOOD COUNT 2.54 10^6/uL (4.30-6.10)
[2024-11-23 19:21] LABS: PLATELET COUNT, AUTOMATED 59 10^3/uL (150-450); WHITE BLOOD COUNT 0.8 10^3/uL (4.0-10.0)
[2024-11-24 00:04] VITALS: BP 153/68; TEMP 97.5; O2SAT 94
[2024-11-24 04:31] VITALS: BP 144/64; TEMP 97.9; O2SAT 96
[2024-11-24 07:39] LABS: HEMATOCRIT 21.9 % (42.0-52.0); HEMOGLOBIN 7.4 g/dl (13.5-17.5); LYMPH # 0.5 10^3/uL (1.5-5.0); LYMPH % 66.2 % (24.0-44.0); MEAN CORPUSCULAR HEMOGLOBIN 28.8 pg (27.0-33.0); MEAN CORPUSCULAR HGB CONC 33.8 g/dl (32.0-36.5); MEAN CORPUSCULAR VOLUME 85.2 fl (80.0-96.0); MONO # 0.1 10^3/uL (0.0-0.8); MONO % 20.6 % (2.0-8.0); NEUTROPHILS % 7.3 % (36.0-66.0); RED BLOOD COUNT 2.57 10^6/uL (4.30-6.10)
[2024-11-24 07:53] LABS: NEUTROPHILS # 0.1 10^3/uL (1.5-8.5)
[2024-11-24 07:58] LABS: PLATELET COUNT, AUTOMATED 55 10^3/uL (150-450); WHITE BLOOD COUNT 0.7 10^3/uL (4.0-10.0)
[2024-11-24 08:00] VITALS: BP 145/68; TEMP 98; O2SAT 95
[2024-11-24 08:04] LABS: ALBUMIN 2.1 G/DL (3.2-5.2); BLOOD UREA NITROGEN 10 MG/DL (9-23); C REACTIVE PROTEIN QUANTITATIV 17.97 MG/DL (<1.0); CALCIUM LEVEL 7.7 MG/DL (8.3-10.6); CARBON DIOXIDE LEVEL 26 MMOL/L (20-31); CHLORIDE LEVEL 103 MMOL/L (98-107); CREATININE FOR GFR 0.88 MG/DL (0.70-1.30); GLOMERULAR FILTRATION RATE > 60.0 (>42); GLUCOSE, FASTING 106 MG/DL (74-106); PHOSPHORUS LEVEL 2.8 MG/DL (2.4-5.1); POTASSIUM SERUM 3.5 MMOL/L (3.5-5.1); SODIUM LEVEL 140 MMOL/L (136-145)
[2024-11-24 08:11] LABS: PROCALCITONIN 0.34 ng/ml
[2024-11-24 10:08] VITALS: BP 145/68
[2024-11-24 10:11] VITALS: O2SAT 95
[2024-11-24] MEDS ORDERED: CEFD300CAP PO (11:32)
[2024-11-24] MEDS ORDERED: DOXY100T PO (11:32)
[2024-11-24] MEDS: DOXYCYCLINE HYCLATE 100MG TABLET PO SCH (12:05)
[2024-11-24] MEDS: CEFDINIR 300 MG CAP (OMNICEF) PO SCH (12:05)
[2024-11-24] MEDS ORDERED: LevoFLOXacin 750 MG TABLET PO SCH (13:00)
== END 2024-11-24 12:53 | disposition home or self-care (01) | DRG 871 ==
LOC: M ED 19:29 → M ED INP 23:57 → M PCU 11-23 02:06
PROVIDERS: ADMIT Student in an Organized Health Care Education/Training Program; ATTEND Student in an Organized Health Care Education/Training Program
PROC: 30233N1 Transfusion of Nonautologous Red Blood Cells into Peripheral Vein, Percutaneous Approach (ICD-10-PCS; principal; 2024-11-22)
PROC: 30233R1 Transfusion of Nonautologous Platelets into Peripheral Vein, Percutaneous Approach (ICD-10-PCS; 2024-11-23)
DX: A41.9 Sepsis, unspecified organism (principal); D61.810 Antineoplastic chemotherapy induced pancytopenia; N17.9 Acute kidney failure, unspecified; C92.00 Acute myeloblastic leukemia, not having achieved remission; D70.2 Other drug-induced agranulocytosis; E87.5 Hyperkalemia; D69.6 Thrombocytopenia, unspecified; M25.552 Pain in left hip; E78.5 Hyperlipidemia, unspecified; I10 Essential (primary) hypertension; I73.9 Peripheral vascular disease, unspecified; G89.29 Other chronic pain; M54.9 Dorsalgia, unspecified; E86.0 Dehydration; K21.9 Gastro-esophageal reflux disease without esophagitis; F41.9 Anxiety disorder, unspecified; M70.72 Other bursitis of hip, left hip; K12.31 Oral mucositis (ulcerative) due to antineoplastic therapy; Z79.899 Other long term (current) drug therapy; Z92.21 Personal history of antineoplastic chemotherapy; T45.1X5A Adverse effect of antineoplastic and immunosuppressive drugs, initial encounter; Z86.16 Personal history of COVID-19; Z98.62 Peripheral vascular angioplasty status; Z87.891 Personal history of nicotine dependence; Z79.891 Long term (current) use of opiate analgesic

== ENCOUNTER 2024-12-03 06:59 | Inpatient (IN) | payer MEDICARE, OTHER ==
[2024-12-03] VITALS (29 sets, daily range): BP systolic 84–151; BP diastolic 50–77; TEMP 97–98.3; O2SAT 93–99
[~2024-12-03] VITALS: Ht 172.7 cm; Wt 91.7 kg
[~2024-12-03 06:59] MED LIST changes: +ALLO10TA PO; +CEFD300CAP PO; +DOXY100T PO; +[UNRECOGNIZED DRUG - CODE] PO
[2024-12-03] MEDS: methylPREDNISolone 125MG 2ML VIAL IV ONE (07:15)
[2024-12-03] MEDS: IPRATROPIUM 0.5MG/ALBUTEROL 2.5MG INH SOL UD 3ML (DUONEB) NEB ONE (07:15)
[2024-12-03 07:38] LABS: ABG HCO3 23.5 MMOL/L (22.0-26.0); ABG O2 SATURATION 96.2 % (95.0-99.0); ABG PARTIAL PRESSURE CO2 37.8 mmHg (35.0-45.0); ABG PARTIAL PRESSURE O2 91.9 mmHg (75.0-100.0); ABG STANDARD HCO3 23.6 MMOL/L. (22.0-26.0); ABG TOTAL CO2 24.6 MMOL/L (23.0-31.0); ABG pH (ARTERIAL) 7.411 UNITS (7.350-7.450)
[2024-12-03] MEDS ORDERED: SODIUM CHLORIDE 0.9% INJ 10 ML SYR IV PRN (07:55)
[2024-12-03] MEDS: SODIUM CHLORIDE 0.9% INJ 10 ML SYR IV SCH (08:05)
[2024-12-03 08:14] LABS: LYMPH # 0.5 10^3/uL (1.5-5.0); LYMPH % 75.4 % (24.0-44.0); MEAN CORPUSCULAR HEMOGLOBIN 27.5 pg (27.0-33.0); MONO % 4.9 % (2.0-8.0); NEUTROPHILS # 0.1 10^3/uL (1.5-8.5); NEUTROPHILS % 19.7 % (36.0-66.0); RED BLOOD COUNT 2.29 10^6/uL (4.30-6.10); WHITE BLOOD COUNT 0.6 10^3/uL (4.0-10.0)
[2024-12-03 08:15] LABS: HEMATOCRIT 19.7 % (42.0-52.0); HEMOGLOBIN 6.3 g/dl (13.5-17.5); PLATELET COUNT, AUTOMATED 64 10^3/uL (150-450)
[2024-12-03] MEDS ORDERED: ISOVUE-370 76% 100ML VIAL As Ordered ONE (08:15)
[2024-12-03] MEDS: CEFEPIME HCL 2 GM in DEXTROSE 5% (D5W) ADV/MINI-BAG 50 ML IV ONE (08:20)
[2024-12-03 08:46] LABS: CPK CREATINE PHOSPHOKINASE 111 U/L (46-171)
[2024-12-03] MEDS: FUROSEMIDE 20MG/2ML VIAL IV ONE (08:55)
[2024-12-03 09:07] LABS: ALBUMIN 2.3 G/DL (3.2-5.2); ALKALINE PHOSPHATASE 73 U/L (40-129); ALT/SGPT 25 U/L (7.0-40); AST/SGOT 32 U/L (<34); BILIRUBIN,DIRECT 0.2 MG/DL (<0.4); BILIRUBIN,TOTAL 0.4 MG/DL (0.3-1.2); BLOOD UREA NITROGEN 36 MG/DL (9-23); CALCIUM LEVEL 8.6 MG/DL (8.3-10.6); CARBON DIOXIDE LEVEL 26 MMOL/L (20-31); CHLORIDE LEVEL 105 MMOL/L (98-107); CK-MB VALUE MASS 15.7 NG/ML (<3.6); CREATININE FOR GFR 1.22 MG/DL (0.70-1.30); GLOMERULAR FILTRATION RATE > 60.0 (>42); GLUCOSE, FASTING 106 MG/DL (74-106); MB/CK RELATIVE INDEX 14.14 (< OR =4); POTASSIUM SERUM 4.7 MMOL/L (3.5-5.1); SODIUM LEVEL 140 MMOL/L (136-145); THYROID STIMULATING HORMONE 0.616 uIU/ML (0.55-4.78); THYROXINE (T4) 7.2 UG/DL (4.5-10.9)
[2024-12-03 09:36] LABS: INR 1.15; PARTIAL THROMBOPLASTIN TIME 35.7 SECONDS (24.8-34.2)
[2024-12-03 09:53] LABS: CK-MB VALUE MASS 18.1 NG/ML (<3.6)
[2024-12-03 09:55] LABS: MB/CK RELATIVE INDEX 15.47 (< OR =4)
[2024-12-03] MEDS: ASPIRIN 81MG CHEW TABLET PO ONE (10:00)
[2024-12-03 10:03] LABS: C REACTIVE PROTEIN QUANTITATIV 6.74 MG/DL (<1.0)
[2024-12-03] MEDS: DOXYCYCLINE HYCLATE 100 MG in DEXTROSE 5% (D5W) MINI-BAG PLU 100 ML IV ONE (10:05)
[2024-12-03 10:11] LABS: KETONE, URINE AUTO RFX NEGATIVE (NEGATIVE); LEUKOCYTE ESTERASE UR AUTO RFX NEGATIVE (NEGATIVE); MUCUS, URINE RFX SMALL (NEGATIVE); NITRITE, URINE AUTO RFX NEGATIVE (NEGATIVE); RBC, URINE AUTO RFX 1 /HPF (0-3); SQUAM EPITHELIAL CELL UR AURFX 1 /HPF (0-6); WBC, URINE AUTO RFX 3 /HPF (0-3)
[2024-12-03] MEDS: VANCOMYCIN/WATER FOR INJ (PEG) 1,750 MG in IV 1 EA IV ONE (10:24)
[2024-12-03 10:30] LABS: PROCALCITONIN 0.22 ng/ml
[2024-12-03 11:13] LABS: CK-MB VALUE MASS 20.9 NG/ML (<3.6)
[2024-12-03 11:14] LABS: MB/CK RELATIVE INDEX 13.06 (< OR =4)
[2024-12-03] MEDS: MORPHINE 2 MG/ML 1ML VIAL IV STA (13:12)
[2024-12-03] MEDS: FUROSEMIDE 40MG/4ML VIAL IV STA (13:13)
[2024-12-03] MEDS ORDERED: DOXY100T PO (13:14)
[2024-12-03] MEDS ORDERED: CEFD1CAP9 PO (13:14)
[2024-12-03] MEDS ORDERED: HOME MED LIST COMPLETE! XX SCH (13:25)
[2024-12-03 14:41] LABS: PROCALCITONIN 0.36 ng/ml
[2024-12-03] MEDS ORDERED: EMLA CREAM 5GM TUBE (LIDOCAINE/PRILOCAINE) TOP SCH (15:30)
[2024-12-03] MEDS: oxyCODONE 15MG CR TAB PO SCH (16:07)
[2024-12-03] MEDS: CEFEPIME HCL 2 GM in DEXTROSE 5% (D5W) ADV/MINI-BAG 50 ML IV SCH (16:08)
[2024-12-03] MEDS: PANTOPRAZOLE 40MG VIAL IV SCH (16:08)
[2024-12-03] MEDS: allopurinoL 300 MG TAB PO SCH (16:08)
[2024-12-03] MEDS: **hydrALAZINE HCL** 25 MG TAB PO SCH (16:08)
[2024-12-03] MEDS: amLODIPine 5 MG TAB PO SCH (16:09)
[2024-12-03] MEDS: ACETAMINOPHEN 325 MG TAB PO ONE ×2 (17:12→22:07)
[2024-12-03] MEDS: diphenhydrAMINE 50MG/ML VIAL IV ONE ×2 (17:12→22:06)
[2024-12-03] MEDS: VANCOMYCIN HCL 1,000 MG, VIAL MATE ADAPTER 1 EACH in NS 250 ML IV SCH (20:25)
[2024-12-03] MEDS: DOXYCYCLINE HYCLATE 100MG TABLET PO SCH (20:25)
[2024-12-03] MEDS: LORazepam 1 MG TAB PO SCH (20:25)
[2024-12-03] MEDS: ATORVASTATIN 10 MG TAB PO SCH (20:25)
[2024-12-03] MEDS: LACTOBACILLUS ACIDOPHILUS CAP (BACID) PO SCH (20:25)
[2024-12-04] VITALS (23 sets, daily range): BP systolic 103–130; BP diastolic 53–78; TEMP 97.1–98.2; O2SAT 87–96
[2024-12-04 01:27] LABS: HEMATOCRIT 22.7 % (42.0-52.0); HEMOGLOBIN 7.6 g/dl (13.5-17.5); MEAN CORPUSCULAR HEMOGLOBIN 28.3 pg (27.0-33.0); MEAN CORPUSCULAR HGB CONC 33.5 g/dl (32.0-36.5); MEAN CORPUSCULAR VOLUME 84.4 fl (80.0-96.0); RED BLOOD COUNT 2.69 10^6/uL (4.30-6.10)
[2024-12-04 01:35] LABS: WHITE BLOOD COUNT 0.5 10^3/uL (4.0-10.0)
[2024-12-04 01:36] LABS: PLATELET COUNT, AUTOMATED 55 10^3/uL (150-450)
[2024-12-04] MEDS: ALBUTEROL 90 MCG/ACT 8GM HFA INHALER INH PRN (03:16)
[2024-12-04 06:10] LABS: HEMATOCRIT 23.4 % (42.0-52.0); HEMOGLOBIN 7.8 g/dl (13.5-17.5); MEAN CORPUSCULAR HGB CONC 33.3 g/dl (32.0-36.5); MEAN CORPUSCULAR VOLUME 83.9 fl (80.0-96.0); RED BLOOD COUNT 2.79 10^6/uL (4.30-6.10)
[2024-12-04 06:12] LABS: PLATELET COUNT, AUTOMATED 67 10^3/uL (150-450); WHITE BLOOD COUNT 0.6 10^3/uL (4.0-10.0)
[2024-12-04 06:40] LABS: PROCALCITONIN 0.46 ng/ml
[2024-12-04 06:56] LABS: ALBUMIN 2.1 G/DL (3.2-5.2); ALKALINE PHOSPHATASE 84 U/L (40-129); ALT/SGPT 28 U/L (7.0-40); AST/SGOT 74 U/L (<34); BILIRUBIN,TOTAL 0.6 MG/DL (0.3-1.2); BLOOD UREA NITROGEN 38 MG/DL (9-23); CALCIUM LEVEL 8.7 MG/DL (8.3-10.6); CARBON DIOXIDE LEVEL 25 MMOL/L (20-31); CHLORIDE LEVEL 108 MMOL/L (98-107); CREATININE FOR GFR 1.06 MG/DL (0.70-1.30); GLOMERULAR FILTRATION RATE > 60.0 (>42); GLUCOSE, FASTING 137 MG/DL (74-106); POTASSIUM SERUM 4.1 MMOL/L (3.5-5.1); SODIUM LEVEL 143 MMOL/L (136-145); TOTAL PROTEIN 6.5 G/DL (5.7-8.2)
[2024-12-04] MEDS: ALPRAZolam 0.25 MG TAB PO PRN (10:17)
[2024-12-04] MEDS: FUROSEMIDE 40MG/4ML VIAL IV ONE (10:17)
[2024-12-05] VITALS (13 sets, daily range): BP systolic 109–168; BP diastolic 56–81; TEMP 97.4–98.5; O2SAT 91–95
[2024-12-05 08:30] LABS: HEMOGLOBIN 7.9 g/dl (13.5-17.5); MEAN CORPUSCULAR HEMOGLOBIN 27.7 pg (27.0-33.0); MEAN CORPUSCULAR HGB CONC 32.9 g/dl (32.0-36.5); MEAN CORPUSCULAR VOLUME 84.2 fl (80.0-96.0); PLATELET COUNT, AUTOMATED 101 10^3/uL (150-450); RED BLOOD COUNT 2.85 10^6/uL (4.30-6.10); WHITE BLOOD COUNT 1.1 10^3/uL (4.0-10.0)
[2024-12-05 08:35] LABS: ALBUMIN 2.1 G/DL (3.2-5.2); ALKALINE PHOSPHATASE 78 U/L (40-129); ALT/SGPT 36 U/L (7.0-40); AST/SGOT 73 U/L (<34); BILIRUBIN,TOTAL 0.5 MG/DL (0.3-1.2); BLOOD UREA NITROGEN 30 MG/DL (9-23); CALCIUM LEVEL 8.3 MG/DL (8.3-10.6); CARBON DIOXIDE LEVEL 29 MMOL/L (20-31); CHLORIDE LEVEL 108 MMOL/L (98-107); CK-MB VALUE MASS 16.6 NG/ML (<3.6); CPK CREATINE PHOSPHOKINASE 115 U/L (46-171); CREATININE FOR GFR 0.84 MG/DL (0.70-1.30); GLOMERULAR FILTRATION RATE > 60.0 (>42); GLUCOSE, FASTING 100 MG/DL (74-106); MB/CK RELATIVE INDEX 14.43 (< OR =4); POTASSIUM SERUM 3.8 MMOL/L (3.5-5.1); SODIUM LEVEL 144 MMOL/L (136-145); TOTAL PROTEIN 6.5 G/DL (5.7-8.2)
[2024-12-05 09:02] LABS: GIANT PLATELETS 1+; LYMPHOCYTES 58 % (16-44); NEUTROPHILS 40 % (28-66); PLATELET ESTIMATE DECREASED (NORMAL)
[2024-12-05 09:05] LABS: ANISOCYTOSIS 1+
[2024-12-05] MEDS: ATORVASTATIN 20 MG TAB PO SCH (16:26)
[2024-12-05] MEDS: ASPIRIN 81MG ENTERIC TABLET PO SCH (16:26)
[2024-12-05] MEDS: CLOPIDOGREL 300 MG TAB (PLAVIX) PO STA (16:26)
[2024-12-05] MEDS: METOPROLOL TART 25 MG TABLET PO ONE (16:27)
[2024-12-05] MEDS ORDERED: FILG48VL SC (16:58)
[2024-12-05] MEDS ORDERED: ATOR1TAB21 PO (16:58)
[2024-12-05] MEDS ORDERED: PANT40IN4 IV (16:58)
[2024-12-05] MEDS ORDERED: DOXY100T PO (16:58)
[2024-12-05] MEDS ORDERED: CLOP75TA2 PO (16:58)
[2024-12-05] MEDS ORDERED: LOVE0.8I SC (16:58)
[2024-12-05] MEDS ORDERED: METO1TAB87 PO (16:58)
[2024-12-05] MEDS ORDERED: CEFE2INJ5 IV (16:58)
[2024-12-05] MEDS ORDERED: ASPI81TAEC PO (16:58)
[2024-12-05] MEDS: ENOXAPARIN 100MG/1ML SYRINGE (J1650 PER 10MG) SC SCH (17:04)
[2024-12-05 17:07] LABS: CHOLESTEROL RISK RATIO 2.98 (<5); CK-MB VALUE MASS 13.9 NG/ML (<3.6); HDL CHOLESTEROL 35.2 MG/DL (>40); NON-HDL-C 69.8 MG/DL
[2024-12-05 17:08] LABS: PERCENT SATURATION 79.8 % (19.7-50.0)
[2024-12-05 17:34] LABS: FERRITIN 3061.6 NG/ML (10.5-307.3); FOLATE 15.26 NG/ML (>5.4); MB/CK RELATIVE INDEX 14.18 (< OR =4)
[2024-12-05] MEDS ORDERED: METOPROLOL TART 25 MG TABLET PO SCH (21:00)
[2024-12-06] MEDS ORDERED: CLOPIDOGREL 75 MG TAB PO SCH (09:00)
[2024-12-06] MEDS ORDERED: FILGRASTIM 480 MCG/0.8 ML SYRINGE **SC ADMINISTRATION ONLY SC SCH (09:00)
[2024-12-11] MEDS ORDERED: CIPR500T39 (09:45)
[2024-12-11] MEDS ORDERED: ACYC200C8 (09:45)
[2024-12-11] MEDS ORDERED: FURO40TA2 PO (09:45)
[2024-12-11] MEDS ORDERED: ELIQ5TAB PO (09:45)
[2024-12-11] MEDS ORDERED: NOXA1TAB PO (09:45)
[2024-12-11] MEDS ORDERED: ROSU5TAB49 PO (09:45)
[2024-12-11] MEDS ORDERED: SENN-186 PO (09:45)
[2024-12-11] MEDS ORDERED: AMLO1TAB24 (09:45)
[2024-12-11] MEDS ORDERED: POTA-298 PO (09:45)
[2024-12-11] MEDS ORDERED: LORA1TAB23 PO (10:04)
[2024-12-11] MEDS ORDERED: VENC100T PO (10:05)
== END 2024-12-05 19:45 | disposition short-term general hospital (02) | DRG 871 ==
LOC: M ED 06:59 → EDBD 06:59 → M ED INP 11:32 → M ICU 14:28
PROVIDERS: ADMIT Student in an Organized Health Care Education/Training Program; ATTEND Internal Medicine
PROC: 30233N1 Transfusion of Nonautologous Red Blood Cells into Peripheral Vein, Percutaneous Approach (ICD-10-PCS; 2024-12-03)
PROC: B246ZZZ Ultrasonography of Right and Left Heart (ICD-10-PCS; principal; 2024-12-04)
DX: A41.9 Sepsis, unspecified organism (principal); J18.9 Pneumonia, unspecified organism; J96.01 Acute respiratory failure with hypoxia; I21.4 Non-ST elevation (NSTEMI) myocardial infarction; I50.43 Acute on chronic combined systolic (congestive) and diastolic (congestive) heart failure; D61.810 Antineoplastic chemotherapy induced pancytopenia; C92.00 Acute myeloblastic leukemia, not having achieved remission; M10.9 Gout, unspecified; I11.0 Hypertensive heart disease with heart failure; E78.5 Hyperlipidemia, unspecified; I73.9 Peripheral vascular disease, unspecified; D70.1 Agranulocytosis secondary to cancer chemotherapy; R31.29 Other microscopic hematuria; G89.29 Other chronic pain; M54.9 Dorsalgia, unspecified; I51.3 Intracardiac thrombosis, not elsewhere classified; R94.31 Abnormal electrocardiogram [ECG] [EKG]; D63.0 Anemia in neoplastic disease; K21.9 Gastro-esophageal reflux disease without esophagitis; K59.00 Constipation, unspecified; F41.9 Anxiety disorder, unspecified; Z79.891 Long term (current) use of opiate analgesic; Z79.899 Other long term (current) drug therapy; Z92.21 Personal history of antineoplastic chemotherapy; Z98.62 Peripheral vascular angioplasty status; Z87.891 Personal history of nicotine dependence

== ENCOUNTER → 2024-12-12 | Outpatient (CLI) | payer MEDICARE, OTHER ==
[~2024-12-12] VITALS: Ht 172.7 cm; Wt 91.3 kg
[~2024-12-12] MED LIST changes: +ACYC200C8; +AMLO1TAB24; +ASPI81TAEC PO; +ATOR1TAB21 PO; +CEFD1CAP9 PO; +CEFE2INJ5 IV; +CIPR500T39; +CLOP75TA2 PO; +CYMB1CAP5 PO; +ELIQ5TAB PO; +FILG48VL SC; +FURO40TA2 PO; +LOVE0.8I SC; +METO1TAB87 PO; +NOXA1TAB PO; +PANT40IN4 IV; +POTA-298 PO; +ROSU5TAB49 PO; +SENN-186 PO
[2024-12-12 14:46] VITALS: BP 187/85; O2SAT 98
== END ==
LOC: M PAL 14:23
PROVIDERS: ATTEND Physician Assistant
DX: Z51.5 Encounter for palliative care (principal); C92.00 Acute myeloblastic leukemia, not having achieved remission; Z92.21 Personal history of antineoplastic chemotherapy; D69.6 Thrombocytopenia, unspecified; Z79.891 Long term (current) use of opiate analgesic; Z79.899 Other long term (current) drug therapy

== ENCOUNTER → 2024-12-26 | Outpatient (REF) | payer MEDICARE, OTHER ==
[~2024-12-26] MED LIST changes: +LIDO15SO8 MT
== END ==
LOC: M LAB REF 17:30
PROVIDERS: ATTEND Otolaryngology
DX: K04.1 Necrosis of pulp (principal)

== ENCOUNTER → 2025-01-09 | Outpatient (CLI) | payer MEDICARE, OTHER ==
[~2025-01-09] VITALS: Ht 167.6 cm; Wt 88.3 kg
[~2025-01-09] MED LIST changes: +DULO1CAP6 PO
[2025-01-09 11:23] VITALS: BP 128/58; O2SAT 97
== END ==
LOC: M PAL 10:55
PROVIDERS: ATTEND Physician Assistant
DX: Z51.5 Encounter for palliative care (principal); C92.00 Acute myeloblastic leukemia, not having achieved remission; D69.6 Thrombocytopenia, unspecified; G89.29 Other chronic pain; R11.0 Nausea; Z79.01 Long term (current) use of anticoagulants; Z79.891 Long term (current) use of opiate analgesic; Z79.899 Other long term (current) drug therapy

== ENCOUNTER → 2025-01-23 | Outpatient (CLI) | payer OTHER | LOC: M ONCM 09:26 | PROVIDERS: ATTEND Dietitian, Registered | DX: C92.00 Acute myeloblastic leukemia, not having achieved remission (principal); Z71.3 Dietary counseling and surveillance; Z68.28 Body mass index [BMI] 28.0-28.9, adult ==

== ENCOUNTER → 2025-02-08 | Outpatient (CLI) | payer MEDICARE, OTHER ==
[~2025-02-08] VITALS: Ht 167.6 cm; Wt 82.1 kg
[~2025-02-08] MED LIST changes: +OXYC10TA12 PO
[2025-02-08 11:20] VITALS: BP 89/49; O2SAT 96
== END ==
LOC: M PAL 10:58
PROVIDERS: ATTEND Physician Assistant
DX: Z51.5 Encounter for palliative care (principal); C92.90 Myeloid leukemia, unspecified, not having achieved remission; Z92.21 Personal history of antineoplastic chemotherapy; D69.6 Thrombocytopenia, unspecified; Z79.891 Long term (current) use of opiate analgesic; Z79.899 Other long term (current) drug therapy

== ENCOUNTER → 2025-03-21 | Outpatient (REF) | payer MEDICARE, OTHER ==
[2025-03-21 18:45] LABS: CALCIUM LEVEL 8.7 MG/DL (8.3-10.6); CARBON DIOXIDE LEVEL 29.0 MMOL/L (20-31); CHLORIDE LEVEL 105.0 MMOL/L (98-107); CREATININE FOR GFR 1.0 MG/DL (0.70-1.30); GLOMERULAR FILTRATION RATE 79.0 (>42); POTASSIUM SERUM 4.9 MMOL/L (3.5-5.1); SODIUM LEVEL 145.0 MMOL/L (136-145)
== END ==
LOC: M LABDRWAD 17:23
PROVIDERS: ATTEND Physician Assistant
DX: I50.22 Chronic systolic (congestive) heart failure (principal)

== ENCOUNTER 2025-04-05 11:56 | Inpatient (IN) | payer MEDICARE, OTHER ==
[~2025-04-05] VITALS: Ht 167.6 cm; Wt 79.0 kg
[~2025-04-05 11:56] MED LIST changes: -CARV3.12 PO; -DIGO0.123 PO; -ENTR1TAB7 PO; -POTA-151 PO
[2025-04-05] MEDS: NS 500 ML IV ONE (13:46)
[2025-04-05 14:09] LABS: BASO # 0.0 10^3/uL (0.0-0.2); BASO % 0.0 % (0.0-1.0); EOS # 0.0 10^3/uL (0.0-0.5); EOS % 0.0 % (0.0-3.0); LYMPH # 0.3 10^3/uL (1.5-5.0); LYMPH % 30.3 % (24.0-44.0); MONO # 0.1 10^3/uL (0.0-0.8); MONO % 8.1 % (2.0-8.0); NEUTROPHILS % 40.4 % (36.0-66.0)
[2025-04-05 14:10] LABS: NEUTROPHILS # 0.4 10^3/uL (1.5-8.5); PLATELET COUNT, AUTOMATED 98 10^3/uL (150-450)
[2025-04-05] MEDS ORDERED: DIGO0.123 PO (14:10)
[2025-04-05] MEDS ORDERED: DULO1CAP6 PO (14:10)
[2025-04-05] MEDS ORDERED: OXYC10TA12 PO (14:10)
[2025-04-05] MEDS ORDERED: POTA-151 PO (14:10)
[2025-04-05] MEDS ORDERED: HOME MED LIST COMPLETE! XX SCH (14:10)
[2025-04-05] MEDS ORDERED: CARV3.12 PO (14:10)
[2025-04-05] MEDS ORDERED: MAGICMW SSP (14:10)
[2025-04-05] MEDS ORDERED: ENTR1TAB7 PO (14:10)
[2025-04-05 14:28] LABS: INR 2.83
[2025-04-05 14:32] LABS: ALT/SGPT 18.0 U/L (7.0-40); AST/SGOT 20.0 U/L (<34); CALCIUM LEVEL 8.2 MG/DL (8.3-10.6); CARBON DIOXIDE LEVEL 31.0 MMOL/L (20-31); CHLORIDE LEVEL 101.0 MMOL/L (98-107); CREATININE FOR GFR 2.7 MG/DL (0.70-1.30); GLOMERULAR FILTRATION RATE 24.0 (>42); POTASSIUM SERUM 4.1 MMOL/L (3.5-5.1); SODIUM LEVEL 142.0 MMOL/L (136-145)
[2025-04-05] MEDS ORDERED: ALBUTEROL SULFATE 2.5 MG/0.5 ML INH CONCENTRATE NEB SOLN INH PRN (17:05)
[2025-04-05] MEDS ORDERED: ALBUTEROL 90 MCG/ACT 8 GM HFA INHALER INH PRN (17:05)
[2025-04-05 17:06] LABS: BASOPHILS 2 % (0-1); LYMPHOCYTES 34 % (16-44); MONOCYTES 5 % (0-5); NEUTROPHILS 48 % (28-66)
[2025-04-05 17:07] LABS: PLATELET ESTIMATE DECREASED (NORMAL)
[2025-04-05] MEDS ORDERED: PILL CUTTER 1 EACH XX PRN (17:20)
[2025-04-05] MEDS ORDERED: SODIUM CHLORIDE 0.9% INJ 10 ML SYR IV PRN (17:30)
[2025-04-05] MEDS: CIPROFLOXACIN 500 MG TABLET PO SCH (18:00)
[2025-04-05 20:29] LABS: PLATELET COUNT, AUTOMATED 99 10^3/uL (150-450)
[2025-04-05] MEDS: ACYCLOVIR 200 MG CAPSULE PO SCH (21:00)
[2025-04-05 21:20] VITALS: BP 155/65; O2SAT 92
[2025-04-05] MEDS: oxyCODONE 15MG CR TAB PO SCH (21:38)
[2025-04-05] MEDS: ROSUVASTATIN 10 MG TAB PO SCH (21:39)
[2025-04-05] MEDS: APIXABAN 5 MG TAB PO SCH (21:39)
[2025-04-05 23:30] VITALS: BP 117/56; TEMP 96.1; O2SAT 93
[2025-04-05 23:45] VITALS: BP 134/62; TEMP 97.6; O2SAT 93
[2025-04-06] VITALS (15 sets, daily range): BP systolic 102–152; BP diastolic 51–78; TEMP 96–97.2; O2SAT 85–95
[2025-04-06] MEDS: HEPARIN LOCK FLUSH 100 UNITS/ML 3 ML SYRINGE IV PRN (05:13)
[2025-04-06 05:39] LABS: BASO # 0.0 10^3/uL (0.0-0.2); BASO % 1.1 % (0.0-1.0); EOS # 0.0 10^3/uL (0.0-0.5); EOS % 0.0 % (0.0-3.0); LYMPH # 0.3 10^3/uL (1.5-5.0); LYMPH % 30.4 % (24.0-44.0); MONO # 0.1 10^3/uL (0.0-0.8); MONO % 9.8 % (2.0-8.0); NEUTROPHILS % 54.4 % (36.0-66.0)
[2025-04-06 05:44] LABS: NEUTROPHILS # 0.5 10^3/uL (1.5-8.5)
[2025-04-06 05:45] LABS: PLATELET COUNT, AUTOMATED 90 10^3/uL (150-450)
[2025-04-06 06:23] LABS: CALCIUM LEVEL 7.8 MG/DL (8.3-10.6); CARBON DIOXIDE LEVEL 28.0 MMOL/L (20-31); CHLORIDE LEVEL 106.0 MMOL/L (98-107); CREATININE FOR GFR 2.43 MG/DL (0.70-1.30); GLOMERULAR FILTRATION RATE 27.2 (>42); MAGNESIUM LEVEL 1.5 MG/DL (1.8-2.4); POTASSIUM SERUM 3.9 MMOL/L (3.5-5.1); SODIUM LEVEL 146.0 MMOL/L (136-145)
[2025-04-06] MEDS ORDERED: MAG SULF 1GM/100ML (MAG RUN) 1 GM in IV 1 EA IV ONE (07:40)
[2025-04-06] MEDS: MAG SULF 1GM/100ML (MAG RUN) 1 GM in IV 1 EA IV SCH (08:14)
[2025-04-06] MEDS: POTASSIUM CHLORIDE 10MEQ SR TABLET PO SCH (08:14)
[2025-04-06] MEDS: HEPARIN LOCK FLUSH 100 UNITS/ML 3 ML SYRINGE IV SCH (08:14)
[2025-04-06] MEDS: SODIUM CHLORIDE 0.9% INJ 10 ML SYR IV SCH (08:15)
[2025-04-06 15:29] LABS: APPEARANCE, URINE CLEAR (CLEAR); BACTERIA, URINE AUTO NEGATIVE (NEGATIVE); BILIRUBIN, URINE AUTO NEGATIVE (NEGATIVE); BLOOD, URINE BLOOD NEGATIVE (NEGATIVE); GLUCOSE, URINE (UA) AUTO NEGATIVE (NEGATIVE); KETONE, URINE AUTO NEGATIVE (NEGATIVE); LEUKOCYTE ESTERASE, URINE AUTO NEGATIVE (NEGATIVE); NITRITE, URINE AUTO NEGATIVE (NEGATIVE); PROTEIN, URINE AUTO NEGATIVE (NEGATIVE); RBC, URINE AUTO 1 /HPF (0-3); SPECIFIC GRAVITY URINE AUTO 1.006 (1.002-1.035); SQUAMOUS EPITHELIAL CELL UR AU 0 /HPF (0-6); UROBILINOGEN, URINE AUTO 0.2 mg/dL (0.0-2.0); WBC, URINE AUTO 1 /HPF (0-3)
[2025-04-06 15:37] LABS: SODIUM,RANDOM URINE 26 MMOL/L
[2025-04-06] MEDS: CIPROFLOXACIN 250 MG TAB PO SCH (17:53)
[2025-04-07 03:52] VITALS: BP 130/60; TEMP 97.2; O2SAT 92
[2025-04-07 05:58] LABS: PLATELET COUNT, AUTOMATED 97 10^3/uL (150-450)
[2025-04-07] MEDS ORDERED: CIPROFLOXACIN 500 MG TABLET PO SCH (06:00)
[2025-04-07] MEDS ORDERED: CIPROFLOXACIN 250 MG TAB PO SCH ×2 (06:00)
[2025-04-07 06:20] LABS: CALCIUM LEVEL 8.4 MG/DL (8.3-10.6); CARBON DIOXIDE LEVEL 31.0 MMOL/L (20-31); CHLORIDE LEVEL 107.0 MMOL/L (98-107); CREATININE FOR GFR 2.32 MG/DL (0.70-1.30); GLOMERULAR FILTRATION RATE 28.8 (>42); MAGNESIUM LEVEL 2.0 MG/DL (1.8-2.4); POTASSIUM SERUM 4.2 MMOL/L (3.5-5.1); SODIUM LEVEL 146.0 MMOL/L (136-145)
[2025-04-07 07:54] VITALS: BP 130/62; TEMP 97.6; O2SAT 90
[2025-04-07] MEDS: POSACONAZOLE 100 MG PO SCH (08:17)
[2025-04-07] MEDS: CEFDINIR 300 MG CAP PO SCH (10:57)
[2025-04-07 12:00] VITALS: BP 124/68; TEMP 97.6; O2SAT 90
[2025-04-07 15:57] VITALS: BP 136/68; TEMP 97.4; O2SAT 92
[2025-04-07 20:13] VITALS: BP 130/63; TEMP 97.6; O2SAT 91
[2025-04-07] MEDS ORDERED: ACYCLOVIR 200 MG CAPSULE PO SCH (21:00)
[2025-04-07 23:28] VITALS: BP 128/60; TEMP 97.1; O2SAT 92
[2025-04-08 04:02] VITALS: BP 132/62; TEMP 97.8; O2SAT 91
[2025-04-08 07:51] VITALS: BP 176/74; TEMP 98.4; O2SAT 94
[2025-04-08] MEDS: ACYCLOVIR 200 MG CAPSULE PO SCH (08:38)
[2025-04-08 09:49] LABS: BASO # 0.0 10^3/uL (0.0-0.2); BASO % 1.0 % (0.0-1.0); EOS # 0.0 10^3/uL (0.0-0.5); EOS % 0.0 % (0.0-3.0); LYMPH # 0.3 10^3/uL (1.5-5.0); LYMPH % 27.2 % (24.0-44.0); MONO # 0.2 10^3/uL (0.0-0.8); MONO % 16.5 % (2.0-8.0); NEUTROPHILS % 52.4 % (36.0-66.0); PLATELET COUNT, AUTOMATED 117 10^3/uL (150-450)
[2025-04-08 09:50] LABS: NEUTROPHILS # 0.5 10^3/uL (1.5-8.5)
[2025-04-08 10:30] LABS: CALCIUM LEVEL 8.6 MG/DL (8.3-10.6); CARBON DIOXIDE LEVEL 32.0 MMOL/L (20-31); CHLORIDE LEVEL 105.0 MMOL/L (98-107); CREATININE FOR GFR 2.22 MG/DL (0.70-1.30); GLOMERULAR FILTRATION RATE 30.3 (>42); MAGNESIUM LEVEL 1.8 MG/DL (1.8-2.4); POTASSIUM SERUM 4.2 MMOL/L (3.5-5.1); SODIUM LEVEL 145.0 MMOL/L (136-145)
[2025-04-08 11:37] VITALS: BP 126/57; TEMP 98.6; O2SAT 92
[2025-04-08] MEDS: SENNOSIDES/DOCUSATE SODIUM 8.6 MG/50MG TAB PO SCH (14:22)
[2025-04-08 16:00] VITALS: BP 126/64; TEMP 98.6; O2SAT 94
[2025-04-08 20:57] VITALS: BP 150/50; TEMP 97.1; O2SAT 94
[2025-04-08] MEDS: BISACODYL 10 MG SUPP PR SCH (22:21)
[2025-04-08 23:47] VITALS: BP 150/60; TEMP 97.2; O2SAT 96
[2025-04-09] VITALS (10 sets, daily range): BP systolic 133–168; BP diastolic 63–91; TEMP 96.9–98.4; O2SAT 81–98
[2025-04-09 05:36] LABS: PLATELET COUNT, AUTOMATED 107 10^3/uL (150-450)
[2025-04-09 06:02] LABS: CALCIUM LEVEL 8.5 MG/DL (8.3-10.6); CARBON DIOXIDE LEVEL 33.0 MMOL/L (20-31); CHLORIDE LEVEL 106.0 MMOL/L (98-107); CREATININE FOR GFR 2.08 MG/DL (0.70-1.30); GLOMERULAR FILTRATION RATE 32.8 (>42); POTASSIUM SERUM 3.9 MMOL/L (3.5-5.1); SODIUM LEVEL 148.0 MMOL/L (136-145)
[2025-04-09] MEDS: D5W 1,000 ML IV SCH (09:34)
[2025-04-09] MEDS: CEFDINIR 300 MG CAP PO SCH (09:36)
[2025-04-10 03:47] VITALS: BP 131/63; TEMP 97; O2SAT 100
[2025-04-10 06:06] LABS: PLATELET COUNT, AUTOMATED 121 10^3/uL (150-450)
[2025-04-10 06:29] LABS: CALCIUM LEVEL 8.0 MG/DL (8.3-10.6); CARBON DIOXIDE LEVEL 32.0 MMOL/L (20-31); CHLORIDE LEVEL 100.0 MMOL/L (98-107); CREATININE FOR GFR 1.87 MG/DL (0.70-1.30); GLOMERULAR FILTRATION RATE 37.3 (>42); MAGNESIUM LEVEL 1.6 MG/DL (1.8-2.4); POTASSIUM SERUM 3.9 MMOL/L (3.5-5.1); SODIUM LEVEL 140.0 MMOL/L (136-145)
[2025-04-10 06:35] LABS: ATYPICAL LYMPH 10 % (0-5); LYMPHOCYTES 23 % (16-44); MONOCYTES 17 % (0-5); NEUTROPHILS 49 % (28-66)
[2025-04-10 06:37] LABS: PLATELET ESTIMATE DECREASED (NORMAL)
[2025-04-10 07:30] VITALS: BP 162/80; TEMP 97; O2SAT 98
[2025-04-10 10:34] VITALS: BP 154/70; TEMP 97.9; O2SAT 93
[2025-04-10 11:18] VITALS: BP 135/58; TEMP 97.4; O2SAT 91
[2025-04-10 15:30] VITALS: BP 162/80; TEMP 97.9; O2SAT 97
[2025-04-10 16:26] LABS: APPEARANCE, URINE CLEAR (CLEAR); BACTERIA, URINE AUTO 1+ (NEGATIVE); BILIRUBIN, URINE AUTO NEGATIVE (NEGATIVE); BLOOD, URINE BLOOD 1+ (NEGATIVE); GLUCOSE, URINE (UA) AUTO NEGATIVE (NEGATIVE); KETONE, URINE AUTO NEGATIVE (NEGATIVE); LEUKOCYTE ESTERASE, URINE AUTO NEGATIVE (NEGATIVE); MUCUS, URINE SMALL (NEGATIVE); NITRITE, URINE AUTO NEGATIVE (NEGATIVE); PROTEIN, URINE AUTO NEGATIVE (NEGATIVE); RBC, URINE AUTO 0 /HPF (0-3); SPECIFIC GRAVITY URINE AUTO 1.002 (1.002-1.035); SQUAMOUS EPITHELIAL CELL UR AU 0 /HPF (0-6); UROBILINOGEN, URINE AUTO 0.2 mg/dL (0.0-2.0); WBC, URINE AUTO 2 /HPF (0-3)
[2025-04-10] MEDS ORDERED: CEFD300CAP PO (16:30)
== END 2025-04-10 18:12 | disposition home health service (06) | DRG 808 ==
LOC: M ED 11:56 → M ED INP 17:02 → M PCU 21:18
PROVIDERS: ADMIT Student in an Organized Health Care Education/Training Program; ATTEND Family Medicine
PROC: 30233N1 Transfusion of Nonautologous Red Blood Cells into Peripheral Vein, Percutaneous Approach (ICD-10-PCS; principal; 2025-04-05)
PROC: 30233Q1 Transfusion of Nonautologous White Cells into Peripheral Vein, Percutaneous Approach (ICD-10-PCS; 2025-04-05)
DX: D61.810 Antineoplastic chemotherapy induced pancytopenia (principal); G93.41 Metabolic encephalopathy; C92.00 Acute myeloblastic leukemia, not having achieved remission; N17.9 Acute kidney failure, unspecified; I50.22 Chronic systolic (congestive) heart failure; E87.1 Hypo-osmolality and hyponatremia; E87.0 Hyperosmolality and hypernatremia; D63.0 Anemia in neoplastic disease; I11.0 Hypertensive heart disease with heart failure; I73.9 Peripheral vascular disease, unspecified; I48.91 Unspecified atrial fibrillation; R29.6 Repeated falls; R00.1 Bradycardia, unspecified; I95.9 Hypotension, unspecified; M54.9 Dorsalgia, unspecified; I25.10 Atherosclerotic heart disease of native coronary artery without angina pectoris; E78.5 Hyperlipidemia, unspecified; G89.29 Other chronic pain; R53.81 Other malaise; T40.2X5A Adverse effect of other opioids, initial encounter; Z79.899 Other long term (current) drug therapy; Z79.69 Long term (current) use of other immunomodulators and immunosuppressants; K59.03 Drug induced constipation; Z79.01 Long term (current) use of anticoagulants; Z98.62 Peripheral vascular angioplasty status; Z79.891 Long term (current) use of opiate analgesic

== ENCOUNTER → 2025-04-05 | Outpatient (CLI) | payer MEDICARE, OTHER ==
[~2025-04-05] VITALS: Ht 172.7 cm; Wt 81.6 kg
[~2025-04-05] MED LIST changes: -ACYC200C8; +CARV3.12 PO; -CIPR500T39; +DIGO0.123 PO; +ENTR1TAB7 PO; +POTA-151 PO
[2025-04-05 11:31] VITALS: BP 90/44; O2SAT 98
== END ==
LOC: M PAL 10:02
PROVIDERS: ATTEND Physician Assistant
DX: Z51.5 Encounter for palliative care (principal); C92.00 Acute myeloblastic leukemia, not having achieved remission; G89.29 Other chronic pain; I95.9 Hypotension, unspecified; D69.6 Thrombocytopenia, unspecified; Z79.01 Long term (current) use of anticoagulants; Z79.891 Long term (current) use of opiate analgesic; Z79.899 Other long term (current) drug therapy; Z92.21 Personal history of antineoplastic chemotherapy

== ENCOUNTER → 2025-05-17 | Outpatient (REF) | payer MEDICARE, OTHER ==
[~2025-05-17] MED LIST changes: +ACYC200C10 PO; -ACYC200C8 PO; +CARV3.12 PO; +DIGO0.123 PO; +ENTR1TAB7 PO; +MAGN400T2 PO; +POTA-151 PO; +SENN-225 PO; -SENO8.6T5 PO
[2025-05-17 11:20] LABS: CALCIUM LEVEL 8.4 MG/DL (8.3-10.6); CARBON DIOXIDE LEVEL 30.0 MMOL/L (20-31); CHLORIDE LEVEL 105.0 MMOL/L (98-107); CREATININE FOR GFR 1.16 MG/DL (0.70-1.30); GLOMERULAR FILTRATION RATE 66.1 (>42); POTASSIUM SERUM 3.9 MMOL/L (3.5-5.1); SODIUM LEVEL 142.0 MMOL/L (136-145)
== END ==
LOC: M LAB REF 09:58
PROVIDERS: ATTEND Physician Assistant
DX: I50.22 Chronic systolic (congestive) heart failure (principal)

== ENCOUNTER → 2025-06-14 | Outpatient (REF) | payer MEDICARE, OTHER ==
[2025-06-14 11:59] LABS: CPK CREATINE PHOSPHOKINASE < 15 U/L (46-171)
[2025-06-14 12:00] LABS: VITAMIN B12 LEVEL 516 PG/ML (211-911)
[2025-06-14 14:16] LABS: ESTIMATED AVERAGE GLUCOSE 134.0 MG/DL (60-110)
[2025-06-16 03:16] LABS: T P ELECTROPHORESIS SO 4.9 g/dL (6.1-8.1)
== END ==
LOC: M LAB REF 10:21
PROVIDERS: ATTEND Psychiatry & Neurology Neurology
DX: E11.9 Type 2 diabetes mellitus without complications (principal); D51.0 Vitamin B12 deficiency anemia due to intrinsic factor deficiency

== ENCOUNTER → 2025-06-21 | Outpatient (CLI) | payer MEDICARE, OTHER ==
[2025-06-21 11:14] VITALS: BP 153/53; O2SAT 100
== END ==
LOC: M PAL 10:53
PROVIDERS: ATTEND Physician Assistant
DX: Z51.5 Encounter for palliative care (principal); C92.01 Acute myeloblastic leukemia, in remission; Z92.21 Personal history of antineoplastic chemotherapy; D69.6 Thrombocytopenia, unspecified; Z79.891 Long term (current) use of opiate analgesic; Z79.899 Other long term (current) drug therapy; Z79.52 Long term (current) use of systemic steroids

== ENCOUNTER 2025-06-27 15:55 | Emergency (ER) | payer MEDICARE, OTHER ==
[~2025-06-27] VITALS: Ht 147.3 cm; Wt 80.1 kg
[2025-06-27 17:12] LABS: VENOUS BASE EXCESS 4.5 (-2.0-2.0); VENOUS HCO3 29.9 MMOL/L (23.0-27.0); VENOUS O2 SATURATION 87.6 % (60.0-80.0); VENOUS PARTIAL PRESSURE CO2 49.4 mmHg (38.0-50.0); VENOUS PARTIAL PRESSURE O2 53.7 mmHg (30.0-50.0); VENOUS PH 7.400 UNITS (7.330-7.430); VENOUS STANDARD HCO3 28.3 MMOL/L; VENOUS TOTAL CO2 31.4 MMOL/L (24.0-28.0)
[2025-06-27 17:21] LABS: BASO # 0.0 10^3/uL (0.0-0.2); BASO % 0.0 % (0.0-1.0); EOS # 0.0 10^3/uL (0.0-0.5); EOS % 2.4 % (0.0-3.0); LYMPH # 0.3 10^3/uL (1.5-5.0); LYMPH % 71.4 % (24.0-44.0); MONO # 0.0 10^3/uL (0.0-0.8); MONO % 7.1 % (2.0-8.0); NEUTROPHILS # 0.1 10^3/uL (1.5-8.5); NEUTROPHILS % 19.1 % (36.0-66.0); PLATELET COUNT, AUTOMATED 28 10^3/uL (150-450)
[2025-06-27 17:24] LABS: INR 1.06
[2025-06-27] MEDS: NS (Normal Saline) 0.9% 1,000 ML IV SCH (17:25)
[2025-06-27 17:55] VITALS: O2SAT 94
[2025-06-27 17:55] LABS: APPEARANCE, URINE HAZY (CLEAR); BACTERIA, URINE AUTO NEGATIVE (NEGATIVE); BILIRUBIN, URINE AUTO NEGATIVE (NEGATIVE); BLOOD, URINE BLOOD NEGATIVE (NEGATIVE); CALCIUM OXALATE CRYSTALS MODERATE; GLUCOSE, URINE (UA) AUTO NEGATIVE (NEGATIVE); KETONE, URINE AUTO NEGATIVE (NEGATIVE); LEUKOCYTE ESTERASE, URINE AUTO NEGATIVE (NEGATIVE); MUCUS, URINE SMALL (NEGATIVE); NITRITE, URINE AUTO NEGATIVE (NEGATIVE); PROTEIN, URINE AUTO 1+ mg/dL (NEGATIVE); RBC, URINE AUTO 0 /HPF (0-3); SPECIFIC GRAVITY URINE AUTO 1.016 (1.002-1.035); SQUAMOUS EPITHELIAL CELL UR AU 0 /HPF (0-6); UROBILINOGEN, URINE AUTO 4.0 mg/dL (0.0-2.0); WBC, URINE AUTO 2 /HPF (0-3)
[2025-06-27 18:08] LABS: ALT/SGPT 29 U/L (7.0-40); AST/SGOT 30 U/L (<34); CALCIUM LEVEL 8.1 MG/DL (8.3-10.6); CARBON DIOXIDE LEVEL 31 MMOL/L (20-31); CHLORIDE LEVEL 103 MMOL/L (98-107); CREATININE FOR GFR 0.69 MG/DL (0.70-1.30); GLOMERULAR FILTRATION RATE > 90.0 (>42); POTASSIUM SERUM 3.6 MMOL/L (3.5-5.1); SODIUM LEVEL 143 MMOL/L (136-145)
[2025-06-27 18:15] LABS: C REACTIVE PROTEIN QUANTITATIV 12.75 MG/DL (<1.0)
[2025-06-27] MEDS: SODIUM CHLORIDE 0.9% INJ 10 ML SYR IV PRN (19:20)
[2025-06-27] MEDS: HEPARIN LOCK FLUSH 100 UNITS/ML 3 ML SYRINGE IV PRN (19:20)
[2025-06-27 19:30] VITALS: BP 143/63; TEMP 100
[2025-06-28] MEDS ORDERED: SODIUM CHLORIDE 0.9% INJ 10 ML SYR IV SCH (09:00)
[2025-06-28] MEDS ORDERED: HEPARIN LOCK FLUSH 100 UNITS/ML 3 ML SYRINGE IV SCH (09:00)
[2025-06-29] MEDS ORDERED: DULO1CAP6 PO (08:52)
[2025-06-29] MEDS ORDERED: VALA500T5 PO (15:18)
[2025-06-29] MEDS ORDERED: NYST-38 SS (15:18)
[2025-07-06] MEDS ORDERED: OXYC30TA72 PO (15:43)
[2025-07-10] MEDS ORDERED: VALA500T5 PO (08:50)
[2025-07-19] MEDS ORDERED: CIPR500T39 PO (16:45)
== END 2025-06-27 19:45 | disposition home or self-care (01) ==
LOC: EDBD 15:55 → M ED 15:55
DX: D61.818 Other pancytopenia (principal); I44.0 Atrioventricular block, first degree; R00.1 Bradycardia, unspecified; I44.4 Left anterior fascicular block; I11.0 Hypertensive heart disease with heart failure; I48.91 Unspecified atrial fibrillation; E78.5 Hyperlipidemia, unspecified; I50.22 Chronic systolic (congestive) heart failure; Z87.891 Personal history of nicotine dependence; Z79.2 Long term (current) use of antibiotics; Z79.51 Long term (current) use of inhaled steroids; Z79.01 Long term (current) use of anticoagulants; Z79.899 Other long term (current) drug therapy; Z79.810 Long term (current) use of selective estrogen receptor modulators (SERMs)
CPT/HCPCS: 70450; 71045; 74176; 80048; 80076; 81001; 82803; 83605; 84145; 85025; 85049; 85055; 85610; 86140; 86850; 86870; 87040; 87086; 87486; 87581; 87633; 87798; 93005; 93041; 94760; 96360; 96361; 99285; J1642

== ENCOUNTER 2025-07-21 13:19 | Observation (INO) | payer MEDICARE, OTHER ==
[~2025-07-21] VITALS: Ht 172.7 cm; Wt 73.1 kg
[~2025-07-21 13:19] MED LIST changes: +NYST-38 SS; +VALA500T5 PO
[2025-07-21] MEDS: HEPARIN LOCK FLUSH 100 UNITS/ML 3 ML SYRINGE IV SCH (14:11)
[2025-07-21] MEDS: SODIUM CHLORIDE 0.9% INJ 10 ML SYR IV SCH (14:11)
[2025-07-21] MEDS: LIDOCAINE 4% CREAM 5 GM (LMX4) TOP ONE (14:11)
[2025-07-21 15:01] LABS: BASO # 0.0 10^3/uL (0.0-0.2); BASO % 0.0 % (0.0-1.0); EOS # 0.0 10^3/uL (0.0-0.5); EOS % 0.0 % (0.0-3.0); LYMPH # 0.2 10^3/uL (1.5-5.0); LYMPH % 76.0 % (24.0-44.0); MONO # 0.0 10^3/uL (0.0-0.8); MONO % 16.0 % (2.0-8.0); NEUTROPHILS % 8.0 % (36.0-66.0)
[2025-07-21 15:05] LABS: NEUTROPHILS # 0.0 10^3/uL (1.5-8.5); PLATELET COUNT, AUTOMATED 12 10^3/uL (150-450)
[2025-07-21 15:52] LABS: CALCIUM LEVEL 8.2 MG/DL (8.3-10.6); CARBON DIOXIDE LEVEL 34 MMOL/L (20-31); CHLORIDE LEVEL 105 MMOL/L (98-107); CREATININE FOR GFR 0.82 MG/DL (0.70-1.30); GLOMERULAR FILTRATION RATE > 90.0 (>42); POTASSIUM SERUM 3.9 MMOL/L (3.5-5.1); SODIUM LEVEL 147 MMOL/L (136-145)
[2025-07-21 16:25] VITALS: BP 188/73; TEMP 99.4; O2SAT 100
[2025-07-21 16:40] VITALS: BP 177/74; TEMP 98.8; O2SAT 97
[2025-07-21] MEDS ORDERED: POSA100T PO (17:04)
[2025-07-21] MEDS ORDERED: HOME MED LIST COMPLETE! XX SCH (17:10)
[2025-07-21 18:00] VITALS: BP 182/79; TEMP 99; O2SAT 95
[2025-07-21] MEDS ORDERED: MAGIC MOUTHWASH 5 ML ORAL SYRINGE SSP PRN (18:05)
[2025-07-21] MEDS ORDERED: ALBUTEROL 90 MCG/ACT 8 GM HFA INHALER INH PRN (18:05)
[2025-07-21] MEDS ORDERED: LIDOCAINE/PRILOCAINE CREAM 5 GM TUBE TOP SCH (18:05)
[2025-07-21] MEDS ORDERED: LIDOCAINE VISCOUS 2% SOLN 15 ML UDC MT PRN (18:05)
[2025-07-21] MEDS ORDERED: ALBUTEROL SULFATE 2.5 MG/0.5 ML INH CONCENTRATE NEB SOLN INH PRN (18:05)
[2025-07-21] MEDS ORDERED: NYSTATIN 500,000 UNITS/5 ML SUSP UDC SS PRN (18:05)
[2025-07-21] MEDS ORDERED: PILL CUTTER 1 EACH XX PRN (18:35)
[2025-07-21] MEDS: DIGOXIN 0.125 MG TAB PO SCH (19:00)
[2025-07-21] MEDS: ROSUVASTATIN 10 MG TAB PO SCH (20:43)
[2025-07-21] MEDS: POTASSIUM CHLORIDE 10MEQ SR TABLET PO SCH (20:44)
[2025-07-21] MEDS: ACYCLOVIR 200 MG CAPSULE PO SCH (20:44)
[2025-07-21] MEDS: MAGNESIUM OXIDE 400 MG TAB PO SCH (20:44)
[2025-07-21] MEDS: CIPROFLOXACIN 500 MG TABLET PO SCH (20:44)
[2025-07-21] MEDS: UNRESOLVED PATIENT OWN MED ORDER XX SCH (21:00)
[2025-07-21 21:50] VITALS: BP 124/68; TEMP 97.5; O2SAT 94
[2025-07-21] MEDS: oxyCODONE 15MG CR TAB PO SCH (22:02)
[2025-07-22] VITALS (10 sets, daily range): BP systolic 135–168; BP diastolic 47–75; TEMP 97.3–98.1; O2SAT 2–97
[2025-07-22 06:32] LABS: BASO # 0.0 10^3/uL (0.0-0.2); BASO % 0.0 % (0.0-1.0); EOS # 0.0 10^3/uL (0.0-0.5); EOS % 0.0 % (0.0-3.0); LYMPH # 0.2 10^3/uL (1.5-5.0); LYMPH % 82.8 % (24.0-44.0); MONO # 0.0 10^3/uL (0.0-0.8); MONO % 10.3 % (2.0-8.0); NEUTROPHILS % 6.9 % (36.0-66.0)
[2025-07-22 06:38] LABS: NEUTROPHILS # 0.0 10^3/uL (1.5-8.5); PLATELET COUNT, AUTOMATED 10 10^3/uL (150-450)
[2025-07-22 07:00] LABS: ALT/SGPT 21 U/L (7.0-40); AST/SGOT 21 U/L (<34); CALCIUM LEVEL 7.5 MG/DL (8.3-10.6); CARBON DIOXIDE LEVEL 36 MMOL/L (20-31); CHLORIDE LEVEL 101 MMOL/L (98-107); CREATININE FOR GFR 0.66 MG/DL (0.70-1.30); GLOMERULAR FILTRATION RATE > 90.0 (>42); POTASSIUM SERUM 3.6 MMOL/L (3.5-5.1); SODIUM LEVEL 143 MMOL/L (136-145)
[2025-07-22] MEDS ORDERED: VENETOCLAX 100MG TABLET (PATIENT'S OWN MED) PO SCH (09:00)
[2025-07-22 16:21] LABS: PLATELET COUNT, AUTOMATED 19 10^3/uL (150-450)
[2025-07-22] MEDS: SODIUM CHLORIDE 0.9% INJ 10 ML SYR IV PRN (17:37)
[2025-07-22] MEDS: HEPARIN LOCK FLUSH 100 UNITS/ML 3 ML SYRINGE IV PRN (17:37)
== END 2025-07-22 18:26 | disposition home or self-care (01) ==
LOC: M ED 13:19 → M ED INP 13:20 → M MS5PR 21:45
PROVIDERS: ADMIT Internal Medicine; ATTEND Internal Medicine
DX: D64.9 Anemia, unspecified (principal); C92.90 Myeloid leukemia, unspecified, not having achieved remission; I10 Essential (primary) hypertension; M54.9 Dorsalgia, unspecified; G89.29 Other chronic pain; Z95.828 Presence of other vascular implants and grafts; Z87.891 Personal history of nicotine dependence; Z79.899 Other long term (current) drug therapy
CPT/HCPCS: 36415; 36430; 80048; 80053; 85025; 85027; 85049; 85055; 86850; 86870; 86900; 86901; 86920; 93005; 93041; 94760; 96374; 96376; 99285; G0378; J1642; P9034; P9058

== ENCOUNTER → 2025-07-24 | Outpatient (CLI) | payer MEDICARE, OTHER ==
[~2025-07-24] MED LIST changes: +POSA100T PO
== END ==
LOC: M CARPUL 11:17
PROVIDERS: ATTEND Physician Assistant
DX: I50.22 Chronic systolic (congestive) heart failure (principal)

== ENCOUNTER → 2025-08-09 | Outpatient (CLI) | payer MEDICARE, OTHER ==
[~2025-08-09] VITALS: Ht 172.7 cm; Wt 71.6 kg
[~2025-08-09] MED LIST changes: +OXYC20TA2 PO; +OXYC40TA29 PO
[2025-08-09 10:27] VITALS: BP 138/68; O2SAT 96
== END ==
LOC: M PAL 10:22
PROVIDERS: ATTEND Physician Assistant
DX: Z51.5 Encounter for palliative care (principal); C92.00 Acute myeloblastic leukemia, not having achieved remission; Z92.21 Personal history of antineoplastic chemotherapy; D69.6 Thrombocytopenia, unspecified; Z79.891 Long term (current) use of opiate analgesic; Z79.899 Other long term (current) drug therapy